=== PATIENT | male | born 1950 | race Caucasian/White ===

== ENCOUNTER 2024-11-03 10:07 | Outpatient (AMB) | payer OTHER, SELFPAY ==
--- NOTE | 2024-11-03 10:12 | A.OFFPC_ITS ---
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 Cirrhosis. Gastroenterology Dr Keys. in [place]. Also Followed at [facility] about q6 mos. Prostate CA and s/p Chemotherapy. Migraines 2ndry to Vision problems. SurgHx: Prostate Seed procedure. Liver tumor resection. PFO repaired SocHx: Quit Cigs > 25 yrs ago. EtOH Quit 20 yrs ago. Daily MJ No other drugs HPI Comments History of Present Illness Details Documentation assistance for Sukhwinder Hester MD, was provided by Robert Savage,? Sewing Techniques Demonstrator on 11/03/2024 at 11:14 AM EST. I, Dr. Hester, have read, observed, and verified documentation. ?? PFSH Medical History (Updated 11/03/24 @ 11:06 by Robert Savage) Gallbladder calculus Liver disease Family History (Updated 11/03/24 @ 10:48 by Christopher Zamora [facility]) Father Alcoholism Social History Housing: House Patient Tobacco Use Status: Never used Tobacco Current occupational status: retired Cognitive needs: No Hearing needs: No Vision needs: Yes Questionnaire PHQ-9 Over the last 2 weeks, how often have you been bothered by any of the following problems? 1. Little interest or pleasure in doing things: not at all 2. Feeling down, depressed, or hopeless: not at all 3. Trouble falling or staying asleep, or sleeping too much: not at all 4. Feeling tired or having little energy: not at all 5. Poor appetite or overeating: not at all 6. Feeling bad about yourself - or that you are a failure or have let yourself or your family down: not at all 7. Trouble concentrating on things, such as reading the newspaper or watching television: not at all 8. Moving or speaking so slowly that other people could have noticed. Or the opposite - being so fidgety or restless that you have been moving around a lot more than usual: not at all 9. Thoughts that you would be better off or of hurting yourself in some way: not at all Total score: 0 Depression Screening Interpretation: Negative Depression Screening Done: Yes 22624 - PHQ-9 Billing: Yes Source: Developed by Drs. Yoni Geronimo, Bronwyn Flor, Anatoly Haas and colleagues, with an educational blanka from [employer]. Thrive Questionnaire I am a: Patient What is your living situation today?: I have a steady place to live Within the past 12 months, did the food you bought not last and you didn't have the money to get more?: Never true Within the past 12 months, did you worry whether your food would run out before you got money to buy more?: Never true Do you have trouble paying for medicines?: No Do you have trouble getting transportation to medical appointments?: No Do you have trouble paying your heating and electricity bill?: No Do you have trouble taking care of your child, family member or friend?: No Do you have trouble with day-to-day activities such as bathing, preparing meals, shopping, managing finances, etc.?: No Are you currently unemployed and looking for a job?: No Are you interested in more education?: No THRIVE Score: 0 YVES-7 AMB Questionnaire YVES-7 Date YVES - 7 assessed: 11/03/24 Feeling nervous, anxious, or on edge: 0 = Not at all Not being able to stop or control worryin = Not at all Worrying too much about different things: 0 = Not at all Trouble relaxin = Not at all Being so restless that it is hard to sit still: 0 = Not at all Becoming easily annoyed or irritable: 0 = Not at all Feeling afraid as if something awful might happen: 0 = Not at all Total YVES-7 score (0-4 normal; 5-9 mild; 10-14 moderate; 15-21 severe): 0 Source: Developed by Drs. Yoni Geronimo, Bronwyn Flor, Anatoly Haas and colleagues, with an educational blanka from [employer]. YVES-7 Assessment Billing YVES-7 Assessment Tool: YVES-7 Assessment 56656 Review of Systems Const Denies chills, Denies fatigue, Denies fever(s), Denies headache(s) and Denies weakness ENT Denies dizziness and Denies headache(s) Card Denies chest pain, Denies lightheadedness, Denies dyspnea and Denies other (Palpitations) Resp Denies cough, Denies dyspnea, Denies wheezing and Denies other ( shortness of breath) Musc Denies numbness and Denies tingling Neuro Denies dizziness, Denies headache(s), Denies numbness, Denies tingling, Denies paresthesias and Denies weakness Psych Denies anxiety and Denies depression Endo Denies fatigue Aller/Immun Denies wheezing Physical exam (Primary Care) Vital Signs: Last Vital Signs Temp 97.5 F 11/03/24 10:17 Pulse 65 11/03/24 10:17 Resp 14 11/03/24 10:17 BP 130/74 11/03/24 10:17 Pulse Ox 99 11/03/24 10:17 Oxygen Delivery Method Room Air 11/03/24 10:17 BMI result Body Mass Index 23.0 Tobacco/Smoking Status: Tobacco use Status Patient Tobacco Use Status Never used Tobacco 11/03/24 10:21 PHQ-9: PHQ-9 Score PHQ-9: Total score 0 11/03/24 11:14 Depression Screening Interpretation: Negative Const General: no acute distress and well developed Nutritional Appearance: well nourished Orientation/consciousness: patient oriented x3 HENMT Head: Yes normocephalic and Yes atraumatic Eyes General: appearance normal, both eyes and all related structures Pupils: Equal, round and reactive pupils present EOM: EOMs intact bilaterally Resp Effort & Inspection: normal respiratory effort Auscultation: clear to auscultation bilaterally Cardio Rate: regular rate Rhythm: regular rhythm Heart sounds: S1 normal heart sound present, S2 normal heart sound present, no gallops, Murmur heart sound present and no rubs Neuro General: patient oriented x3 and gait normal Cranial nerves: Yes Equal, round and reactive pupils present Psych Affect: normal affect Coding Level of Care Code New Pt Level 4 (24305) Diagnoses Cirrhosis K74.60 History of liver cancer Z85.05 History of prostate cancer Z85.46 Heart murmur R01.1 History of stroke Z86.73 Vision changes H53.9 Migraines G43.909 History of alcohol use Z87.898 First degree AV block I44.0 Laboratory exam ordered as part of routine general medical examination Z00.00 Additional Codes YVES-7 Assessment Billing - YVES-7 Assessment Tool: YVES-7 Assessment 52331 ([id number]) PHQ-9 - 09596 - PHQ-9 Billing: Yes ([id number]) Assessment & Plan Assessment & Plan (1) Cirrhosis: Code(s): K74.60 - Unspecified cirrhosis of liver Category: Medical Plan: History?of?alcohol?abuse?but?patient?says?he?quit?many?years?ago. Remain?abstinent Follow- up?with?Gastroenterology.??Patient?says?was?seen?by??[facility]?and?is?also?followe d?at[facility] (2) History of liver cancer: Code(s): Z85.05 - Personal history of malignant neoplasm of liver Category: Medical Plan: Followed?at[facility] Requesting?notes (3) History of prostate cancer: Code(s): Z85.46 - Personal history of malignant neoplasm of prostate Category: Medical Plan: S/p?brachytherapy Check?PSA Patient?has?mild?dribbling?at?times. Will?refer?to?Urology?if?PSA?is?elevated?or?symptoms?worsened (4) Heart murmur: Code(s): R01.1 - Cardiac murmur, unspecified Category: Medical Plan: Patient?notes?a?murmur He?says?he?has?a?history?of a?cardiac?shunt?and?likely?PFO?which?was?repaired. 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 Check Echo (5) History of stroke: Code(s): Z86.73 - Personal history of transient ischemic attack (TIA), and cerebral infarction without residual deficits Category: Medical Plan: History?of?stroke?secondary?to PFO,?repaired (6) Vision changes: Code(s): H53.9 - Unspecified visual disturbance Category: Medical Plan: Vision Changes?secondary?to?stroke Follow-up?with?blue leather sorter?as?recommended (7) Migraines: Code(s): G43.909 - Migraine, unspecified, not intractable, without status migrainosus Category: Medical Plan: Patient?notes?migraines He?will?follow-up?with?blue leather sorter If?unresolved,?will?refer?to?Neurology?as?he?has?a?history?of?stroke?as?well (8) History of alcohol use: Code(s): Z87.898 - Personal history of other specified conditions Category: Medical Plan: No?recent?alcohol?use?in?many?years Maintain?abstinence (9) First degree AV block: Code(s): I44.0 - Atrioventricular block, first degree Category: Medical Plan: Stable (10) Laboratory exam ordered as part of routine general medical examination: Code(s): Z00.00 - Encounter for general adult medical examination without abnormal findings Category: Medical Plan: Check?labs Orders: Orders Comprehensive [place]. Panel Fast 11/03/24 Z00.00 - Encounter for general adult medical examination without abnormal findings Prostate Specific Antigen Scr 11/03/24 Z12.5 - Encounter for screening for malignant neoplasm of prostate Lipid Panel 11/03/24 Z00.00 - Encounter for general adult medical examination without abnormal findings Vitamin D 25-OH Total 11/03/24 E55.9 - Vitamin D deficiency, unspecified Vitamin B12 and Folate 11/03/24 E53.8 - Deficiency of other specified B group vitamins AMB EKG-In Office 11/03/24 I49.9 - Cardiac arrhythmia, unspecified, R01.1 - Cardiac murmur, unspecified CA echo transthoracic complete 11/03/24 R01.1 - Cardiac murmur, unspecified Complete Blood Count Auto Diff 11/03/24 Z00.00 - Encounter for general adult medical examination without abnormal findings Microalbumin, Random (w Creat) 11/03/24 I10 - Essential (primary) hypertension UA CC w/rflx Micro + Cult 11/03/24 Z00.00 - Encounter for general adult medical examination without abnormal findings TSH reflex Free T4 11/03/24 Z00.00 - Encounter for general adult medical examination without abnormal findings
[2024-11-03 10:17] VITALS: BP 130/74; PULSE 65; RESP 14; TEMP 36.4; O2SAT 99; BMI 23.0
--- OUTSIDE RECORDS SUMMARY | 2024-11-03 10:27 | XMS_ITS | Clinical Summary ---
Author Organization [facility] Address [address] [place] [address] Care Team Providers Care Advertising Production Manager Name Role Phone Dustin Tolentino Primary Care Provide r Allergies No known active allergies Medications Medication Sig Dispensed Refills Start Date End Date Status COMBIGAN 0.2-0.5 % ophthalmic solution Place 1 drop into both eyes 2 (two) times a day. 2 12/25/2016 Active colchicine 0.6 MG tablet TAKE 2 tablets by MOUTH FOR 1 DOSE THEN 1 tablet 1 hour LATER needed FOR flare 5 01/02/2017 Active fluticasone (FLONASE) 50 MCG/ACT nasal spray USE 2 SPRAYS IN EACH NOSTRIL EVERYDAY 5 01/02/2017 Active latanoprost (XALATAN) 0.005 % ophthalmic solution Place 1 drop into both eyes every night at bedtime. 6 12/25/2016 Active naproxen (NAPROSYN) 500 MG tablet TAKE 1 TABLET BY MOUTH TWICE DAILY FOR 3 DAYS THEN TWICE DAILY NEEDED. TAKE WITH food 0 01/06/2017 Active omeprazole (PRILOSEC) 20 MG capsule TAKE 1 CAPSULE BY MOUTH DAILY 5 01/02/2017 Active oxyCODONE-acetaminoph en (PERCOCET) 5-325 MG per tablet TAKE 1 TO 2 tablets BY MOUTH every 4 TO 6 hours NEEDED 0 01/06/2017 Active amoxicillin-clavulana te (AUGMENTIN) 875-125 MG per tablet Take 1 tablet by mouth 2 (two) times a day. 0 Active Lactobacillus (BRIANA ASSIST PO) Take by mouth. 0 Active Ophthalmic Irrigation Solution (AKORN BALANCED SALT OP) Apply to eye. 0 Acti ve nadolol (CORGARD) 40 MG tablet Take 40 mg by mouth daily. 0 Active Active Problems Problem Noted Date Diagnosed Date Liver cell carcinoma 01/08/2017 Alcoholic cirrhosis of liver without ascites 08/2016 Family History Medical History Relation Name Comments No Sig Med Hx Brother 1 No Sig Med Hx Daughter 1 No Sig Med Hx Daughter 2 Lung cancer Mother Lung cancer Other Nephew No Sig Med Hx Sister No Sig Med Hx Son Relation Name Status Comments Brother 1 Brother 2 aortic aneurism Daughter 1 Daughter 2 Mother (Age 68) Other Nephew (Age 47) Sister Son Social History Tobacco Use Types Packs/Day Years Used Date Smoking Tobacco: Former Cigarettes 2 30 Q uit: 01/08/2007 Smokeless Tobacco: Never Alcohol Use Standard Drinks/Week Comments Yes 140 (1 standard drink = 0.6 oz p ure alcohol) QUIT 7 years ago Sex and Gender Information Value Date Recorded Sex Assigned at Not on file Gender Identity Not on file Sexual Orientation Not on file Job Start Date Occupation Industry Not on file Not on file Not on file Last Filed Vital Signs Vital Sign Reading Time Taken Comments Blood Pressure 143/80 02/23/2017 10:28 AM EDT Pulse 54 02/23/2017 10:28 AM EDT Temperature - - Respiratory Rate - - Oxygen Saturation - - Inhaled Oxygen Concentration - - Weight 79.8 kg (176 lb) 02/23/2017 10:28 AM EDT Height 180.3 cm (5' 11 ) 02/23/2017 10:28 AM EDT Body Mass Index 24.55 02/23/2017 10:28 AM EDT Plan of Treatment Health Maintenance Due Date Last Done Comments Hepatitis C Screening 1950 COVID-19 Vaccine (#1) 1954 Pneumococcal Vaccine (1 of 2 - PCV) 1955 Depression Screening 1961 Preventative Health Evaluation 1967 DTap / Tdap / Td (1 - Tdap) 1968 Shingrix-Zoster Vaccine (1 of 2) 1968 Colon Cancer Screening (Colonoscopy) 1994 Fall Risk Assessment 2014 Influenza Vaccine (#1) 2024 RSV Adult > 60+ Yrs or Pregn ant (1 - 1-dose 75+ series) 2024 Hepatitis B Vaccines Aged Out No long er eligible based on patient's age to complete this topic RSV Ped < 20 months Aged Out No longe r eligible based on patient's age to complete this topic Care Teams Advertising Production Manager Relationship Specialty Start Date End Date Dustin Tolentino DO [address] [facility] [address] [place] [address] PCP - General Internal Medicine 01/08/17
== END 2024-11-03 11:17 | disposition home or self-care (01) ==
LOC: HO.HMCFM 10:08
PROVIDERS: PCP Family Medicine; Visit Provider Family Medicine
DX: K74.60 Unspecified cirrhosis of liver (principal); Z85.05 Personal history of malignant neoplasm of liver; Z85.46 Personal history of malignant neoplasm of prostate; R01.1 Cardiac murmur, unspecified; Z86.73 Personal history of transient ischemic attack (TIA), and cerebral infarction without residual deficits; H53.9 Unspecified visual disturbance; G43.909 Migraine, unspecified, not intractable, without status migrainosus; Z87.898 Personal history of other specified conditions; I44.0 Atrioventricular block, first degree; Z00.00 Encounter for general adult medical examination without abnormal findings

== ENCOUNTER → 2024-11-03 10:07 | Outpatient (BNVA) | payer OTHER, SELFPAY | PROVIDERS: PCP Family Medicine; Visit Provider Family Medicine | DX: Z00.00 Encounter for general adult medical examination without abnormal findings (principal); K74.60 Unspecified cirrhosis of liver; R01.1 Cardiac murmur, unspecified; H53.9 Unspecified visual disturbance; G43.909 Migraine, unspecified, not intractable, without status migrainosus; I44.0 Atrioventricular block, first degree; Z85.05 Personal history of malignant neoplasm of liver; Z85.46 Personal history of malignant neoplasm of prostate; Z86.73 Personal history of transient ischemic attack (TIA), and cerebral infarction without residual deficits; Z87.898 Personal history of other specified conditions | CPT/HCPCS: 96127 ==

== ENCOUNTER → 2024-11-30 09:55 | Outpatient (REF) | payer MEDICARE, SELFPAY ==
--- NOTE | 2024-11-30 10:07 | CA_ITS ---
Transthoracic Echocardiogram Patient (Last, First, Middle): Lucio Sanchez H Gender: Male Date of : 1950 Age: 74 Procedure Date: 11/30/2024 Procedure Type: Transthoracic Echocardiogram Location: OP Height: 180.34 cm Weight: 74.84 kg BSA: 1.94 m2 Heart Rate: 50 bpm BP: 130 / 72 mmHg Grocery Store Associate: SB Referring MD: Sukhwinder Hester MD Symptoms: R01.1 - Cardiac murmur, unspecified Study Quality: Adequate ECG Rhythm: Sinus Conclusions: - The left ventricular systolic function is normal. The calculated ejection fraction is 65% by biplane method. - There is mild to moderate aortic valve stenosis. Findings Left Ventricle Normal left ventricular cavity size. The left ventricular systolic function is normal. The calculated ejection fraction is 65% by biplane method. There is no evidence of regional wall motion abnormalities. Diastolic function is normal for age. There is mild septal and mild basal asymmetric hypertrophy. Right Ventricle Mildly increased right ventricular cavity size. There is normal right ventricular systolic function. Atria Both atria are normal in size. History of septal closure device; no obvious residual leak. Aortic Valve There is moderate calcification of the aortic valve. There is mild to moderate aortic valve stenosis. There is no aortic valve regurgitation. Mitral Valve There is mild mitral annular calcification. There is no mitral valve regurgitation. There is no mitral valve stenosis. Pulmonic Valve The pulmonic valve is likely normal. Tricuspid Valve There is trace tricuspid valve regurgitation. There is no evidence of pulmonary hypertension. Great Vessels The asc aorta is normal in size. Small plaque is seen in the sino tubular ridge. Venous The inferior vena cava was not well visualized. Pericardium/Pleural There is no evidence of pericardial effusion. Prior Study Comparison No prior study available for comparison. Measurements 2D Linear Measurements IVSd: 1.38 0.6-0.9/0.6-1.0 cm LVIDd: 3.97 3.9-5.3/4.2-5.9 cm LVIDd Index: 2.05 2.4-3.2/2.2-3.1 cm/m2 LVIDs: 2.45 2.0-3.6 cm LVPWd: 0.80 0.7-1.1 cm LA Diam: 3.60 2.7-3.8/3.0-4.0 cm LAIDs Index: 1.86 1.5-2.3 cm/m2 LV Mass: 176.25 67-162/88-224 g LV Mass Index: 90.85 43-95/49-115 g/m2 LVOT Diam: 2.20 3.0+(-)1.3 cm 2D Systolic Function EF 4C: 53.70 >55% EF 2C: 70.20 >55% EF BiP: 64.50 >55% Mitral Valve MV Pk E: 0.80 MV PK A: 0.96 MV Decel Time: 315.00 E/A: 0.80 E'Lateral: 9.68 E'Medial: 6.09 E/E' Med: 13.20 E/E' Lat: 8.30 PHT: 92.00 MVA PHT: 2.39 Decel [place]: 2.54 Aortic Valve AoV Pk José: 2.55 AoV Mn José: 1.74 AoV VTI: 0.62 AoV Pk Grad: 26.00 Aov Mn Grad: 14.00 RIGOBERTO Cont.VTI: 1.31 LVOT LVOT Pk José: 0.94 LVOT Mn José: 0.64 LVOT VTI: 0.21 LVOT Pk Grad: 4.00 LVOT Mn Grad: 2.00 LVOT Diam: 2.20 LVOT Area: 3.80 Diastolic Function MV Pk E: 0.80 MV Pk A: 0.96 E/A: 0.80 E'Medial: 6.09 E/E' Med: 13.20 E' Laterial: 9.68 E/E' Lat: 8.30 Right Ventricle TAPSE (mm): 21.20 TVS' José: 10.80 Tricuspid Valve TR Pk José: 1.94 TR Pk Grad: 15.00 RA Press: 3.00 RVSP: 18.00 Great Vessels Aorta Sinus of Valsalva: 3.60 2.0-3.5 cm Ao Asc: 3.50 2.1-3.4 cm Pulmonary Veins Pulm Vein S/D 2.00 Pulmonary Valve PV Pk José: 1.12 Peak PV Grad: 5.00 Updated in Other Vendor System with Status of Final Jose Roberto Diaz MD electronically signed on 12/02/2024 1:06:35 PM with status of Final
--- OUTSIDE RECORDS SUMMARY | 2024-11-30 11:26 | XMS_ITS | Clinical Summary ---
Author Organization [facility] Address [address] [place] [address] Care Team Providers Care Trans Router Name Role Phone Dustin Tolentino Primary Care [...] Screening (Colonoscopy) 1994 Fall Risk Assessment 2014 RSV Adult > 60+ Yrs or Pregn ant (1 - 1-dose 75+ series) 2024 Influenza Vaccine (Season Ended) 2025 Hepatitis B Vaccines Aged Out No long er eligible based on patient's age to complete this topic RSV Ped < 20 months Aged Out No longe r eligible based on patient's age to complete this topic Care Teams Trans Router Relationship Specialty Start Date End Date Dustin Tolentino DO [address] [facility] [address] [place] [address] PCP - General Internal Medicine 01/08/17
== END ==
LOC: HO.CARD 09:55
PROVIDERS: PCP Family Medicine; Visit Provider Family Medicine
DX: R01.1 Cardiac murmur, unspecified (principal)
CPT/HCPCS: 93306

== ENCOUNTER → 2024-11-30 10:07 | Outpatient (BNV) | payer MEDICARE, SELFPAY | PROVIDERS: PCP Family Medicine; Visit Provider Internal Medicine | DX: I42.2 Other hypertrophic cardiomyopathy (principal); I35.0 Nonrheumatic aortic (valve) stenosis; I34.81 Nonrheumatic mitral (valve) annulus calcification | CPT/HCPCS: 93306 ==

== ENCOUNTER 2025-01-02 08:18 | Outpatient (REF) | payer MEDICARE, SELFPAY ==
--- OUTSIDE RECORDS SUMMARY | 2025-01-02 08:27 | XMS_ITS | Clinical Summary ---
Author Organization [facility] Address [address] [place] [address] Care Team Providers Care Audio Visual Collections Coordinator Name Role Phone Dustin Tolentino Primary Care [...] - 1-dose 75+ series) 2024 Influenza Vaccine (#1) 2025 Hepatitis B Vaccines Aged Out No long er eligible based on patient's age to complete this topic RSV Ped < 20 months Aged Out No longe r eligible based on patient's age to complete this topic Care Teams Audio Visual Collections Coordinator Relationship Specialty Start Date End Date Dustin Tolentino DO [address] [facility] [address] [place] [address] PCP - General Internal Medicine 01/08/17
--- OUTSIDE RECORDS SUMMARY | 2025-01-02 08:27 | XMS_ITS ---
Author Name [facility] Organization Unknown Care Team Organization Name Specialty Phone Email Start Date End Da partha [facility] Ana Lilia Murray Primary Care 04/15/2022 01/25/2024
--- OUTSIDE RECORDS SUMMARY | 2025-01-02 08:28 | XMS_ITS | Clinical Summary ---
Author Organization [address] [place] [address] Address [address] [place] [address] Phone Care Team Providers Care Icebox Man Name Role Phone Medel, Robert J Primary Care Provider + Allergies Active Allergy Reactions Criticality Noted Date Comments Codeine Headache 05/06/2018 Medications omeprazole (PriLOSEC) [address] capsule Take 1 capsule (20 mg total) by mouth 1 (one) time each day. 4 Active OMEGA-3 FATTY ACIDS ORAL Take by mouth. Acti ve TURMERIC ORAL Take by mouth. A ctive fluticasone propionate (FLONASE NASL) Administer into affected nostril(s). Active multivit-min/foli c/vit K/lycop (MEN'S MULTIVITAMIN ORAL) Take 1 tablet by mouth 1 (one) time each day. 7 Active ferrous sulfate 325 mg (65 mg iron) EC tablet Take 1 tablet (325 mg total) by mouth 1 (one) time each day with breakfast. Do not crush, chew, or split. 30 each 11 5 07/21/19 26 Active Active Problems Problem Noted Date Diagnosed Date Gout 05/19/2017 Prediabetes 05/11/2017 Hepatocellular carcinoma (CMS/HCC V24, CMS/HCC V 28) 03/05/2017 Overview (05/20/2024): bx 01/22/17 [place]. Follow up at [facility] for liver transplant consideration. Chemoembolization February 2017, May/2017, October 2017 and March 2018. 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 + murmur 04/17/16 Radiation proctitis 11/04/2016 Renal cyst, right 11/04/2016 Overview (05/20/2024): US 10/18/15 Thrombocytopenia ([facility] V24) 11/04/2016 Tubular adenoma of colon 11/04/2016 Overview (05/20/2024): Colonoscopy 10/31/11. 5 year repeat Diverticulosis 11/04/2016 Overview (05/20/2024): Diverticulitis of lg intestine, 01/2017 Immunizations Name Administration Dates Next Due Influenza trivalent, 0.5mL (Fluad) 65yo and olde r 01/30/2020 Influenza, Unspecified 04/26/2019 [employer] SARS-CoV-2 COVID -19, vector-nr, rS-Ad26, preservative free 10/04/2020 Surgical History Surgery Date Site/Laterality Comments OTHER SURGICAL HISTORY PROCEDURE: HISTORY OTHER; COMMENT: PFO repair BACK SURGERY PROCEDURE: HISTORICAL BACK SURGERY; COMMENT: Lumbar vertebroplasty UPPER GASTROINTESTINAL ENDOSCOPY 04/2015 PROCEDURE: UPPER GI ENDOSCOPY/EXAM COLONOSCOPY 10/31/19 12 PROCEDURE: HISTORICAL COLONOSCOPY; COMMENT: 5 year repeat COLONOSCOPY 12/31/19 17 PROCEDURE: HISTORICAL COLONOSCOPY; COMMENT: polyp UPPER GASTROINTESTINAL ENDOSCOPY 12/31/19 17 PROCEDURE: NE UPPER GI ENDOSCOPY PERFORMED; COMMENT: small varices, mild portal gastropathy BACK SURGERY 06/12/19 17 Left PROCEDURE: HISTORICAL BACK SURGERY; COMMENT: L4-L5 microdiscectomy FLEXIBLE SIGMOIDOSCOPY 05/06/20 18 PROCEDURE: HISTORICAL FLEXIBLE SIGMOIDOSCOPY; COMMENT: radiation proctitis with bleeding UPPER GASTROINTESTINAL ENDOSCOPY 05/06/20 18 PROCEDURE: NE UPPER GI ENDOSCOPY PERFORMED; COMMENT: grade 2 esophageal varices OTHER SURGICAL HISTORY 2019 Right PROCEDURE: INCISION OF EYE FOR GLAUCOMA CATARACT EXTRACTION 2020 Right PROCEDURE: HISTORICAL CATARACT REMOVAL COLONOSCOPY 11/20/19 PROCEDURE: HISTORICAL COLONOSCOPY; COMMENT: tubular adenomas, diverticulosis, radiation proctitis ESOPHAGOGASTRODUODENOSCOPY 11/20/19 PROCEDURE: NE ESOPHAGOGASTRODUODENOSCOPY TRANSORAL DIAGNOSTIC; COMMENT: hiatal hernia, truncated varices. 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 + murmur 04/17/16 Radiation proctitis 11/04/2016 DX:Radiation proctitis Angiodysplasia 11/04/2016 DX:Angiodysplasi a; COMMENT: Rectal bleeding Thrombocytopenia (CMS/HCC V24) 11/04/2016 D X:Thrombocytopenia (HCC) Renal cyst, right 11/04/2016 DX:Renal cyst, right; COMMENT: US 10/18/15 Tubular adenoma of colon 11/04/2016 DX:Tubu lar adenoma of colon; COMMENT: Colonoscopy 10/31/11. 5 year repeat Hepatocellular carcinoma (CM S/HCC V24, CMS/HCC V28) 03/05/2017 DX:Hepatocellular carcinoma (HCC) Prediabetes 05/11/2017 DX:Prediabetes Gout 05/19/2017 DX:Gout Radiation proctitis DX:Radiation proctitis Tubular adenoma of colon DX:Tubu lar adenoma of colon Esophageal reflux DX:Esophageal reflux Family History Medical History Relation Name Comments Other cancer Father Other: Other Mother Relation Name Status Comments Father Mother Social History Tobacco Use Types Packs/Day Years Used Date Smoking Tobacco: Former Cigarettes Q uit: 11/28/2005 Smokeless Tobacco: Never Tobacco Cessation:Counseling Given: Not Answered Alcohol Use Standard Drinks/Week Comments No 0 (1 standard drink = 0.6 oz pur e alcohol) Sex and Gender Information Value Date Recorded Sex Assigned at Male 07/26/2024 9:07 AM EST Legal Sex Male 5:25 PM EST Gender Identity Male 07/26/2024 9:07 AM EST Sexual Orientation Choose not to disclose 2024 9:07 AM EST Obstetrics History Last Filed Vital Signs Vital Sign Reading Time Taken Comments Blood Pressure 126/76 07/21/2024 2:42 PM EST Pulse 61 07/21/2024 2:42 PM EST Temperature - - Respiratory Rate 16 07/21/2024 2:42 PM EST Oxygen Saturation 99% 07/21/2024 2:42 PM EST Inhaled Oxygen Concentration - - Weight 77 kg (169 lb 12.8 oz) 07/21/2024 2:42 PM EST Height 180.3 cm (5' 11 ) 07/21/2024 2:42 PM EST Body Mass Index 23.68 07/21/2024 2:42 PM EST Plan of Treatment Health Maintenance Due Date Last Done Comments Pneumococcal Vaccine: 50+ Years (3 of 3 - PPSV23, PCV20 or PCV21) 05/26/2017 02/13/2017, 05/26/2012 Hepatitis A Vaccines (3 of 3 - Hep A Twinrix risk 3-dose series) 08/17/2017 03/19/2017, 02/13/2017 Hepatitis B Vaccines (3 of 3 - Hep B Twinrix risk 3-dose series) 08/17/2017 03/19/2017, 02/13/2017 COVID-19 Vaccine (2 - Urszula risk series) 11/01/2020 10/04/2020 Abdominal Aortic Aneurysm (AAA) Screen 05/10/2022 Cholesterol Screening (Lipid Panel) 05/10/2022 Falls Risk Assessment 05/10/2022 Medicare Annual Wellness Visit 05/10/2022 Social Influencers of Health Screening 05/10/2022 Depression Screening 06/08/2024 RSV Immunization Adult Patients (1 - 1-dose 75+ series) 2024 Influenza Vaccine (#1) 2025 3, 04/05/2022, 01/30/2020, Additional history exists Colorectal Cancer Screening: Colonoscopy 11/19/2026 11/19/2021 DTaP,Tdap,and Td Vaccines (2 - Td or Tdap) 02/13/2027 02/13/2017 Hepatitis C Screening Completed 11/16/2014 Zoster Vaccines Completed 04/19/2021, 06/2020, 02/19/2017 HIB Vaccines Aged Out No longer eligi ble based on patient's age to complete this topic HPV Vaccines Aged Out No longer eligi ble based on patient's age to complete this topic IPV Vaccines Aged Out No longer eligi ble based on patient's age to complete this topic MMR Vaccines Aged Out No longer eligi ble based on patient's age to complete this topic Meningococcal ACWY Vaccine Aged Out N o longer eligible based on patient's age to complete this topic Meningococcal B Vaccine Aged Out No l onger eligible based on patient's age to complete this topic RSV Immunization Patients Under 20 months Aged Out No longer eligible based on patient's age to complete this topic Varicella Vaccines Aged Out No longer eligible based on patient's age to complete this topic Procedures Procedure Name Priority Date/Time Associated Diagnosis Comments COLONOSCOPY Routine 11/19/2021 HEPATITIS C SCREENING Routine 11/16/2014 from Last 3 Months or Most Recently Relevant to Health Maintenance Results * Colonoscopy (11/19/2021) Colonoscopy abstracted, no interpretation Anatomical Region Laterality Modality Other Historical Provider HEALTH MAINTENANCE Final Result * Hepatitis C Screening (11/16/2014) Hepatitis C Screening abstracted Historical Provider HEALTH MAINTENANCE Final Result from Last 3 Months or Most Recently Relevant to Health Maintenance Insurance [employer]ARE [employer]AGE Care Teams Icebox Man Relationship Specialty Start Date End Date Yoni Medel DO [facility] [address] [place] [address] [phone] PCP - General Internal Medicine 11/12/20
[2025-01-02 11:39] LABS: MANUAL DIFF FLAG NO
[2025-01-02 11:46] LABS: Hematocrit 40.3 % (42.0-52.0); Hemoglobin 13.8 g/dl (14.0-18.0); Imm Gran Abs Auto 0.02 X10*3/uL (0.00-0.03); Imm Gran Pct Auto 0.3 % (0.0-0.4); Lymphocytes Absolute Auto 1.6 X10*3/uL (1.2-4.9); Mean Corpuscular HGB Conc 34.2 g/dl (31.0-36.0); Mean Corpuscular Hemoglobin 34.7 pg (27.0-33.0); Mean Corpuscular Volume 101.3 fL (80.0-98.0); NRBC Abs Auto 0.000 X10*3/uL (0.0-0.012); NRBC Pct Auto 0.0 /100WBC (0.0-0.2); Platelet Count 120 X10*3/uL (160-400); Red Blood Count 3.98 X10*6/uL (4.60-5.80); White Blood Count 7.6 X10*3/uL (4.8-10.8)
[2025-01-02 12:13] LABS: Alanine Aminotransferase 22 U/L (0-40); Albumin Level 4.3 g/dL (3.5-5.0); Alkaline Phosphatase 96 U/L (39-117); Anion Gap 15 (12-20); Aspartate Amino Transferase 44 U/L (5-37); Blood Urea Nitrogen 18 mg/dL (9-16); Calcium 9.7 mg/dL (8.4-10.2); Carbon Dioxide 25 mmol/L (22-29); Chloride 106 mmol/L (96-108); Cholesterol 214 mg/dL (<200); Estimated Glomerular Filt Rate > 60; HDL Cholesterol 52 mg/dL (>40); Potassium 4.6 mmol/L (3.3-5.1); Sodium 141 mmol/L (135-145); Total Protein 7.8 g/dL (6.5-8.0); Triglycerides 103 mg/dL (<150)
[2025-01-02 12:38] LABS: Folate 13.4 ng/mL (> or = 4.0); Vitamin B12 728 pg/mL (200-900)
[2025-01-02 15:12] LABS: Appearance Urine Clear; Glucose Urine UA Negative (Negative); PH 5.5 (5.0-9.0); Specific Gravity - Urine 1.025 (1.005-1.025); UMIC TRIGGER UACC YES
[2025-01-02 15:45] LABS: Microalbum/Creatinine Ratio Ur 80.1 ug/mg cr (<30)
== END 2025-01-02 08:19 | disposition home or self-care (01) ==
LOC: HO.WFDLDS 08:18
PROVIDERS: Visit Provider Family Medicine
DX: Z00.00 Encounter for general adult medical examination without abnormal findings (principal); Z12.5 Encounter for screening for malignant neoplasm of prostate; I10 Essential (primary) hypertension; E55.9 Vitamin D deficiency, unspecified; E53.8 Deficiency of other specified B group vitamins
CPT/HCPCS: 36415; 80053; 80061; 81001; 81003; 82043; 82306; 82570; 82607; 82746; 84153; 84443; 85025

== ENCOUNTER 2025-01-04 11:02 | Outpatient (AMB) | payer OTHER, SELFPAY ==
--- NOTE | 2025-01-04 11:08 | MHC.PC.OV ---
Vital Signs 01/04/25 11:13 Height 5 ft 11 in Weight 156 lb 8 oz BMI 21.8 BP 120/70 Blood Pressure Location Rt brachial Position Sitting Respiration 14 Pulse 68 Pulse Source Pulse Oximeter Temp 97.8 F Temp Source Oral Pulse Oximetry (%) 96 Oxygen Delivery Method Room Air Intake Visit Reasons: CPE with f/u labs and health maint. 30 mins Intake Note: patient is scheduled for cpe Outreach Assistant Required: No Allergies codeine Adverse Reaction (Mild, Verified 01/04/25 11:08) Headache Medication List - Last Reconciled 01/04/25 by Sukhwinder Hester MD ferrous sulfate (FeroSul) 325 mg PO QAM latanoprost 0.005% 1 drp ophthalmic (eye) BEDTIME omeprazole 20 mg PO DAILY 90 days Tobacco use date assessed: 01/04/25 Fall risk assessment: No Falls in past year Last assessed Fall Risk: 01/04/25 Dental Screening Dental Screen Date: 01/04/25 Did you have a dental visit in the last 12 months?: No Did you have a dental problem in the last 6 months where you did not have access to dental care?: Yes Was dental information given to patient?: Patient has dentist HPI CPE with f/u labs and health maint. 30 mins HPI Details 74 y/o male presents for a CPE with f/u labs and health maintenance. Labs drawn 01/02/25. Reviewed labs with pt. Mild anemia. Fasting glucose 135. AST 44. Triglycerides 103. TC 214. LDL 142. HDL 52. Echocardiogram 11/30/24. Conclusions show: Conclusions: - The left ventricular systolic function is normal. The calculated ejection fraction is 65% by biplane method. - There is mild to moderate aortic valve stenosis. [facility] Medical History Gallbladder calculus Liver disease Family History Father Alcoholism Social History Housing: House Patient Tobacco Use Status: Never used Tobacco e-Cigarette/Vaping Use: Never Used service: No Current occupational status: retired Current occupational exposures/hazards: No Cognitive needs: No Hearing needs: No Vision needs: Yes Questionnaire PHQ-9 Over the last 2 weeks, how often have you been bothered by any of the following problems? 1. Little interest or pleasure in doing things: not at all 2. Feeling down, depressed, or hopeless: not at all 3. Trouble falling or staying asleep, or sleeping too much: nearly every day 4. Feeling tired or having little energy: not at all 5. Poor appetite or overeating: not at all 6. Feeling bad about yourself - or that you are a failure or have let yourself or your family down: not at all 7. Trouble concentrating on things, such as reading the newspaper or watching television: not at all 8. Moving or speaking so slowly that other people could have noticed. Or the opposite - being so fidgety or restless that you have been moving around a lot more than usual: not at all 9. Thoughts that you would be better off or of hurting yourself in some way: not at all Total score: 3 Depression Screening Interpretation: Negative Depression Screening Done: Yes 59948 - PHQ-9 Billing: Yes Source: Developed by Drs. Yoni Geronimo, Bronwyn Flor, Anatoly Haas and colleagues, with an educational blanka from [employer]. Thrive Questionnaire Date Thrive assessed: 01/04/25 I am a: Patient What is your living situation today?: I have a steady place to live Within the past 12 months, did the food you bought not last and you didn't have the money to get more?: Never true Within the past 12 months, did you worry whether your food would run out before you got money to buy more?: Never true Do you have trouble paying for medicines?: No Do you have trouble getting transportation to medical appointments?: No Do you have trouble paying your heating and electricity bill?: No Do you have trouble taking care of your child, family member or friend?: No Do you have trouble with day-to-day activities such as bathing, preparing meals, shopping, managing finances, etc.?: No Are you currently unemployed and looking for a job?: No Are you interested in more education?: Yes Please select the resources that you would like help with: None Currently or been in a relationship where the following occur: No concerns reported THRIVE Score: 0 AUDIT C Alcohol Use Questionnaire (AUDIT-C) 1. How often do you have a drink containing alcohol?: Never 3. How often do you have six or more drinks on one occasion?: Never Total Score: 0 YVES-7 AMB Questionnaire YVES-7 Date YVES - 7 assessed: 01/04/25 Feeling nervous, anxious, or on edge: 0 = Not at all Not being able to stop or control worryin = Not at all Worrying too much about different things: 0 = Not at all Trouble relaxin = More than half the days Being so restless that it is hard to sit still: 0 = Not at all Becoming easily annoyed or irritable: 1 = Several days Feeling afraid as if something awful might happen: 0 = Not at all Total YVES-7 score (0-4 normal; 5-9 mild; 10-14 moderate; 15-21 severe): 3 Source: Developed by Drs. Yoni Geronimo, Bronwyn Flor, Anatoly Haas and colleagues, with an educational blanka from [employer]. YVES-7 Assessment Billing YVES-7 Assessment Tool: YVES-7 Assessment 93929 Review of Systems Const Denies chills, Denies fatigue, Denies fever(s), Denies headache(s) and Denies weakness Eyes Denies change in vision ENT Denies dizziness, Denies headache(s), Denies hearing loss, Denies nasal congestion, Denies sinus pain, Denies sinus pressure and Denies sore throat Card Denies chest pain, Denies lightheadedness, Denies dyspnea and Denies other (palpitations) Resp Denies cough, Denies dyspnea and Denies wheezing GI Denies abdominal pain, Denies melena, Denies hematochezia, Denies change in bowel habits, Denies dyspepsia and Denies nausea Denies hematuria and Denies dysuria Musc Denies abnormal gait, Denies myalgias, Denies arthralgias, Denies numbness and Denies tingling Skin/Breast Denies rash, Denies unusual bruising and Denies wounds Neuro Denies abnormal gait, Denies dizziness, Denies headache(s), Denies memory loss, Denies numbness, Denies Sensory deficit (Neuro), Denies tingling and Denies weakness Psych Denies anxiety, Denies depression and Denies memory loss Endo Denies cold intolerance, Denies fatigue, Denies heat intolerance, Denies polydipsia and Denies polyuria Rick/Lymph Denies easy bleeding and Denies easy bruising Aller/Immun Denies wheezing Physical exam (Primary Care) Vital Signs: Last Vital Signs Temp 97.8 F 01/04/25 11:13 Pulse 68 01/04/25 11:13 Resp 14 01/04/25 11:13 BP 120/70 01/04/25 11:13 Pulse Ox 96 01/04/25 11:13 Oxygen Delivery Method Room Air 01/04/25 11:13 BMI result Body Mass Index 21.8 Tobacco/Smoking Status: Tobacco use Status Tobacco use date assessed 01/04/25 01/04/25 11:16 Patient Tobacco Use Status Never used Tobacco 01/04/25 11:16 e-Cigarette/Vaping Use Never Used 01/04/25 11:16 PHQ-9: PHQ-9 Score PHQ-9: Total score 3 01/04/25 12:17 Depression Screening Interpretation: Negative Thrive Assessment: Date of Thrive Assessment Date Thrive assessed 01/04/25 01/04/25 11:16 Currently or been in a relationship where the following occur: No concerns reported Const General: no acute distress, well developed, alert and awake Nutritional Appearance: well nourished Orientation/consciousness: patient oriented x3 HENMT Head: Yes normocephalic and Yes atraumatic Ears: hearing grossly normal bilaterally and TM's normal bilaterally General nose exam: Normal external nose present and Normal nares present Mouth: Normal oral and palatal mucosa present and moist mucous membranes Teeth and gingiva: dentition normal Throat: Yes posterior oropharynx normal Eyes General: appearance normal, both eyes and all related structures Pupils: Equal, round and reactive pupils present and Pupil accommodation reflex normal EOM: EOMs intact bilaterally Neck Neck: Yes normal visual inspection, Yes no lymphadenopathy and Yes trachea midline Thyroid: Thyroid normal Carotids: no bruits Lymphatic: no lymphadenopathy noted Chest Chest palpation & inspection: normal inspection of the chest Resp Effort & Inspection: normal respiratory effort Auscultation: clear to auscultation bilaterally Cardio Rate: regular rate Rhythm: regular rhythm Heart sounds: S1 normal heart sound present, S2 normal heart sound present, no gallops, no murmurs and no rubs Bruits: no abdominal aortic bruits and no carotid bruits GI Palpation (GI): No Abdominal aortic bruit present, Soft to palpation, nontender, No hepatosplenomegaly present and No Rebound tenderness present Auscultation: normal bowel sounds General: Yes no CVA tenderness Back/Spine/Pelvis Back: no CVA tenderness Cervical Spine: cervical ROM normal and No Cervical spine tenderness Thoracic/Lumbar Spine: thoraco-lumbar ROM normal, No pain with thoraco-lumbar ROM, No thoracic spinal tenderness and No lumbar spinal tenderness Skin Lesions: no lesions Rashes: no rashes Trauma: no lacerations or abrasions Wounds: no wounds Nails: normal Neuro General: patient oriented x3 Cranial nerves: Yes Equal, round and reactive pupils present Cognition (Neuro): normal cognition Gait exam (Neuro): Normal gait present Motor exam (neuro): 5/5 motor strength present throughout Sensory Exam: No Sensory deficit (Neuro) Deep tendon reflexes (DTR's): Right patellar reflex intensity grade: 2+ and Left patellar reflex intensity grade: 2+ Extrem General: Yes normal to inspection and No edema Psych Appearance: grossly normal Affect: normal affect Attitude: cooperative Thought process: Normal thought process present Coding Level of Care Code New Pt Prev Care >65yr (85212) Diagnoses Adult general medical exam Z00.00 Elevated fasting glucose R73.01 Hyperlipidemia E78.5 Aortic stenosis I35.0 Headache R51.9 History of prostate cancer Z85.46 Mild anemia D64.9 History of stroke Z86.73 Screening for colon cancer Z12.11 Left otitis externa H60.92 Additional Codes YVES-7 Assessment Billing - YVES-7 Assessment Tool: YVES-7 Assessment [id number] ([id number]) PHQ-9 - 91399 - PHQ-9 Billing: Yes ([id number]) Assessment & Plan Assessment & Plan (1) Adult general medical exam: Code(s): Z00.00 - Encounter for general adult medical examination without abnormal findings Category: Medical Plan: 74-year-old male presents for complete physical exam (2) Elevated fasting glucose: Code(s): R73.01 - Impaired fasting glucose Category: Medical Plan: Elevated fasting blood sugar but his A1c is 5.3%. Normal range. Will recheck fasting blood sugar with next lab draw (3) Hyperlipidemia: Code(s): E78.5 - Hyperlipidemia, unspecified Category: Medical Plan: LDL cholesterol is too high and patient does have history of TIA Start atorvastatin Will recheck lipids with next blood draw (4) Aortic stenosis: Code(s): I35.0 - Nonrheumatic aortic (valve) stenosis Category: Medical Plan: Echocardiogram shows moderate aortic stenosis Referred to cardiology (5) Headache: Code(s): R51.9 - Headache, unspecified Category: Medical Plan: Patient notices nasal congestion and sinus headache He has used Flonase past with good affect. Sent a script for Flonase. (6) History of prostate cancer: Code(s): Z85.46 - Personal history of malignant neoplasm of prostate Category: Medical Plan: PSA was within normal range. Will continue annual screening (7) Mild anemia: Code(s): D64.9 - Anemia, unspecified Category: Medical Plan: Mild anemia Will recheck H&H with next blood draw (8) History of stroke: Code(s): Z86.73 - Personal history of transient ischemic attack (TIA), and cerebral infarction without residual deficits Category: Medical Plan: Blood pressure appears controlled. 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 Panel Fast Today Z00.00 - Encounter for general adult medical examination without abnormal findings, Z86.73 - Personal history of transient ischemic attack (TIA), and cerebral infarction without residual deficits Lipid Panel Today Z00.00 - Encounter for general adult medical examination without abnormal findings, Z86.73 - Personal history of transient ischemic attack (TIA), and cerebral infarction without residual deficits Complete Blood Count Auto Diff Today D64.9 - Anemia, unspecified, Z00.00 - Encounter for general adult medical examination without abnormal findings Microalbumin, Random (w Creat) Today I10 - Essential (primary) hypertension, Z00.00 - Encounter for general adult medical examination without abnormal findings Referrals Cardiology Referral I35.0 - Nonrheumatic aortic (valve) stenosis Medications: New fluticasone propionate 50 mcg/actuation (Flonase Allergy Relief) administer into each nostril 1 spray intranasal Q12H 16 grams 2RF 30 days atorvastatin (Lipitor) 20 mg PO BEDTIME 90 tabs 2RF 90 days ciprofloxacin-dexamethasone 0.3-0.1 % 4 drps otic (ears) BID 7.5 mL 0RF 7 days
[2025-01-04 11:13] VITALS: BP 120/70; PULSE 68; RESP 14; TEMP 36.6; O2SAT 96; BMI 21.8
--- OUTSIDE RECORDS SUMMARY | 2025-01-04 12:08 | XMS_ITS | Encounter Summary ---
Author Organization [facility] Address [id number] [place] [phone] Care Team Providers Care Roofing Layer Name Role Phone Yoni Medel Primary Care Provider + Reason for Visit * Reason Onset Date Comments provider call back 01/02/2025 Encounter Details Date Type Department Care Team (Late st Contact Info) Description 01/02/2025 Telephone Gastroenterology - [place] [address] [facility] [address] [place] [phone] Patrick Aguilar MD 175 [facility] [address] [place], [place] [phone] provider call back Social History Tobacco Use Types Packs/Day Years Used Date Smoking Tobacco: Former Cigarettes Q uit: 11/28/2005 Smokeless Tobacco: Never Alcohol Use Standard Drinks/Week Comments No 0 (1 standard drink = 0.6 oz pur e alcohol) Sex and Gender Information Value Date Recorded Sex Assigned at Male 07/26/2024 9:07 AM EST Legal Sex Male 5:25 PM EST Gender Identity Male 07/26/2024 9:07 AM EST Sexual Orientation Choose not to disclose 2024 9:07 AM EST documented as of this encounter Progress Notes * Jami Gonzalez MA - 01/02/2025 2:45 PM EDT Left message for patient to call back and answer the below questions for Sarah to assess pt. Pleaseask the questions if no one is available to speak with him and so we don't have to play tag on the phone. Thanks Amina * NAOMY Zhang - 01/02/2025 1:53 PM EDT Please ask more questions, if any left lower quadrant abdominal pain, any nausea, any vomiting, anydiarrhea, constipation, rectal bleeding so I could assess the situation. TY * Jami Gonzalez MA - 01/02/2025 1:38 PM EDT Sarah, What input do you have on this message? Last seen 07/21/24 by Massimo. Please advise, Thanks Amina * Tyesha Luna - 01/02/2025 8:53 AM EDT Patient calling requesting penicillin be sent to his pharmacy, [facility]. States Massimo has prescribed him this for an infection in his intestines. Patient states the infection comes back every 6 months if he does not eat right or something gets stuck. Patient states he has a pinching / sharp pain in his lower left side. documented in this encounter Plan of Treatment Upcoming Encounters Date Type Department Care Team (Late st Contact Info) Description 01/25/2025 9:40 AM EDT Office Visit Gastroenterology - [place] 175 [facility] 175 [facility] [address] [place] [phone] Patrick Aguilar MD 175 [facility] [address] [place] [address] documented as of this encounter Visit Diagnoses Not on filedocumented in this encounter Care Teams Roofing Layer Relationship Specialty Start Date End Date Yoni Medel DO [facility] [address] [place] [id number] PCP - General Internal Medicine 11/12/20 documented as of this encounter
--- OUTSIDE RECORDS SUMMARY | 2025-01-04 12:08 | XMS_ITS | Clinical Summary ---
Author Organization [facility] Address [address] [place] [address] Care Team Providers Care Blue Line Trimmer Name Role Phone Dustin Tolentino Primary Care [...] age to complete this topic Care Teams Blue Line Trimmer Relationship Specialty Start Date End Date Dustin Tolentino DO 75 [facility] [address] [place] [phone] PCP - General Internal Medicine 01/08/17
== END 2025-01-04 12:40 | disposition home or self-care (01) ==
LOC: HO.HMCFM 11:02
PROVIDERS: PCP Family Medicine; Visit Provider Family Medicine
DX: Z00.00 Encounter for general adult medical examination without abnormal findings (principal); R73.01 Impaired fasting glucose; E78.5 Hyperlipidemia, unspecified; I35.0 Nonrheumatic aortic (valve) stenosis; R51.9 Headache, unspecified; Z85.46 Personal history of malignant neoplasm of prostate; D64.9 Anemia, unspecified; Z86.73 Personal history of transient ischemic attack (TIA), and cerebral infarction without residual deficits; Z12.11 Encounter for screening for malignant neoplasm of colon; H60.92 Unspecified otitis externa, left ear

== ENCOUNTER → 2025-01-04 11:02 | Outpatient (BNVA) | payer OTHER, SELFPAY | PROVIDERS: PCP Family Medicine; Visit Provider Family Medicine | DX: Z00.00 Encounter for general adult medical examination without abnormal findings (principal); I10 Essential (primary) hypertension; R73.01 Impaired fasting glucose; E78.5 Hyperlipidemia, unspecified; I35.0 Nonrheumatic aortic (valve) stenosis; R51.9 Headache, unspecified; D64.9 Anemia, unspecified; H60.92 Unspecified otitis externa, left ear; Z86.73 Personal history of transient ischemic attack (TIA), and cerebral infarction without residual deficits; Z85.46 Personal history of malignant neoplasm of prostate | CPT/HCPCS: 96127 ==

== ENCOUNTER 2025-02-02 07:47 | Outpatient (REF) | payer OTHER, SELFPAY ==
--- OUTSIDE RECORDS SUMMARY | 2025-02-02 07:50 | XMS_ITS | Clinical Summary ---
Author Organization [facility] Address [address] [place] [address] Care Team Providers Care Water Chaser Name Role Phone Dustin Tolentino Primary Care [...] age to complete this topic Care Teams Water Chaser Relationship Specialty Start Date End Date Dustin Tolentino DO 75 [facility] [address] [place] [address] PCP - General Internal Medicine 01/08/17
--- OUTSIDE RECORDS SUMMARY | 2025-02-02 07:50 | XMS_ITS | Clinical Summary ---
Author Organization [address] [place] [address] Address [address] [place] [address] Phone Care Team Providers Care Felt Hat Flanging Operator Name Role Phone Sukhwinder Hester MD Primary Care Provider [phone] Allergies Active Allergy Reactions Criticality Noted Date [...] 30 each 11 5 07/21/19 26 Active polyethylene glycol (MIRALAX) 17 gram packet Take 17 g by mouth 1 (one) time each day. 1530 g 5 04/10/20 25 Active Active Problems Problem Noted Date Diagnosed Date Gout 05/19/2017 Prediabetes 05/11/2017 Hepatocellular carcinoma (CMS/HCC V24, CMS/HCC V 28) 03/05/2017 Overview (05/20/2024): bx 01/22/17 Shalonda. Follow up at [facility] for liver transplant consideration. Chemoembolization February 2017, May/2017, October 2017 and March 2018. 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 + murmur 04/17/16 Radiation proctitis 11/04/2016 Renal cyst, right 11/04/2016 Overview (05/20/2024): US 10/18/15 Thrombocytopenia (CMS/HCC V24) 11/04/2016 Tubular adenoma of colon 11/04/2016 Overview (05/20/2024): Colonoscopy 10/31/11. 5 year repeat Diverticulosis 11/04/2016 Overview (05/20/2024): Diverticulitis of lg intestine, 01/2017 Encounters Date Type Department Care Team Description 01/10/2025 9:20 AM EDT Office Visit Gastroenterology [facility] 175 [facility] [address] [phone] Rosina Diaz NP Left lower quadrant abdominal pain (Primary Dx); History of hepatocellular carcinoma; Gastroesophageal reflux disease without esophagitis; Chronic constipation; Radiation induced proctitis; History of esophageal varices; History of adenomatous polyp of colon 01/10/2025 Telephone Gastroenterology [facility] 175 [facility] [address] [phone] Rosina Diaz NP 01/02/2025 Telephone Gastroenterology [facility] [address] [phone] Patrick Aguilar MD from Last 3 Months Immunizations Name Administration Dates Next Due Influenza trivalent, 0.5mL (Fluad) 65yo and olde r 01/30/2020 Influenza, Unspecified 04/26/2019 [email or web address] SARS-CoV-2 COVID -19, vector-nr, rS-Ad26, preservative free [...] polyp UPPER GASTROINTESTINAL ENDOSCOPY 12/31/19 17 PROCEDURE: CO UPPER GI ENDOSCOPY PERFORMED; COMMENT: small varices, mild portal gastropathy BACK SURGERY 06/12/19 Left PROCEDURE: HISTORICAL BACK SURGERY; COMMENT: L4-L5 microdiscectomy FLEXIBLE SIGMOIDOSCOPY 05/06/20 18 PROCEDURE: HISTORICAL FLEXIBLE SIGMOIDOSCOPY; COMMENT: radiation proctitis with bleeding UPPER GASTROINTESTINAL ENDOSCOPY 05/06/20 18 PROCEDURE: CO UPPER GI ENDOSCOPY PERFORMED; COMMENT: grade 2 esophageal varices OTHER SURGICAL HISTORY 2019 Right PROCEDURE: INCISION OF EYE FOR GLAUCOMA CATARACT EXTRACTION 2020 Right PROCEDURE: HISTORICAL CATARACT REMOVAL COLONOSCOPY 11/20/19 PROCEDURE: HISTORICAL COLONOSCOPY; COMMENT: tubular adenomas, diverticulosis, radiation proctitis ESOPHAGOGASTRODUODENOSCOPY 11/20/19 PROCEDURE: CO ESOPHAGOGASTRODUODENOSCOPY TRANSORAL DIAGNOSTIC; COMMENT: hiatal hernia, truncated [...] Male 07/26/2024 9:07 AM EST Sexual Orientation Straight 01/11/2025 9: 22 AM EDT Obstetrics History Last Filed Vital Signs Vital Sign Reading Time Taken Comments Blood Pressure 130/74 01/10/2025 9:33 AM EDT Pulse 56 01/10/2025 9:33 AM EDT Temperature - - Respiratory Rate 16 07/21/2024 2:42 PM EST Oxygen Saturation 98% 01/10/2025 9:33 AM EDT Inhaled Oxygen Concentration - - Weight 71.9 kg (158 lb 9.6 oz) 01/10/2025 9:33 A M EDT Height 180.3 cm (5' 11 ) 01/10/2025 9:33 AM EDT Body Mass Index 22.12 01/10/2025 9:33 AM EDT Plan of Treatment Upcoming Encounters Date Type Department Care Team (Late st Contact Info) Description 02/02/2025 3:15 PM EDT Appointment [facility] CT Scan [address] [place] [phone] 02/22/2025 2:30 PM EDT Appointment [facility] Endoscopy [address] [place] [phone] Patrick Aguilar MD [address] [place] [phone] 04/06/2025 1:40 PM EDT Office Visit Gastroenterology - [place] 175 [facility] 175 [facility] [address] [place] [phone] Patrick Aguilar MD [address] [place] [phone] Health Maintenance Due Date Last Done Comments [...] Screen 05/10/2022 Cholesterol Screening (Lipid Panel) 05/10/2022 02/12/2017 Falls Risk Assessment 05/10/2022 Medicare Annual Wellness Visit 05/10/2022 Social Influencers of Health Screening 05/10/2022 Depression Screening 06/08/2024 RSV Immunization Adult Patients (1 - 1-dose 75+ series) 2024 Influenza Vaccine (#1) 2025 , 04/05/2022, 01/30/2020, Additional history exists Colorectal Cancer Screening: Colonoscopy 11/19/2026 11/19/2021 DTaP,Tdap,and Td Vaccines (2 - Td or Tdap) 02/13/2027 02/13/2017 Hepatitis C Screening Completed 02/12/2017, 015 Zoster Vaccines Completed 04/19/2021, 06/2020, 02/19/2017 HIB [...] to Health Maintenance Results * Colonoscopy (11/19/2021) Pathologist [facility] Colonoscopy abstracted, no interpretation Anatomical Region Laterality Modality Other [facility] Provider HEALTH MAINTENANCE Final Result * Hepatitis C Screening (11/16/2014) Pathologist [facility] Hepatitis C Screening abstracted Historical Provider HEALTH MAINTENANCE Final Result from Last 3 Months or Most Recently Relevant to Health Maintenance Insurance [employer] MEDICARE ADVANTAGE MEDICAID - [place] Care Teams Felt Hat Flanging Operator Relationship Specialty Start Date End Date Sukhwinder Hester MD [address] [place] [phone] PCP - General Family Medicine 01/10/25
== END 2025-02-02 07:48 | disposition home or self-care (01) ==
LOC: HO.WFDLDS 07:47
PROVIDERS: Visit Provider Family Medicine
DX: Z13.89 Encounter for screening for other disorder (principal)

== ENCOUNTER 2025-02-13 14:07 | Outpatient (AMB) | payer OTHER, SELFPAY ==
--- NOTE | 2025-02-13 14:14 | A.OFFVIS_ITS ---
Vital Signs 02/13/25 14:15 Height 5 ft 11 in Weight 156 lb 8.451 oz BMI 21.8 BP 180/70 H Blood Pressure Location Lt brachial Position Sitting Pulse 57 Pulse Source Pulse Oximeter Intake Visit Reasons: Nonrheumatic aortic (valve) stenosis Allergies codeine Adverse Reaction (Mild, Verified 01/04/25 11:08) Headache Medication List - Last Reconciled 02/13/25 by Jose Roberto Diaz MD atorvastatin (Lipitor) 20 mg PO BEDTIME 90 days ferrous sulfate (FeroSul) 325 mg PO QAM fluticasone propionate 50 mcg/actuation (Flonase Allergy Relief) 1 spray intranasal Q12H 30 days latanoprost 0.005% 1 drp ophthalmic (eye) BEDTIME omeprazole 20 mg PO DAILY 90 days HPI Comments Details: Lucio is here for consultation regarding aortic stenosis. He has a history of PFO closure from 2005. Apparently, it was performed because of stroke. However, it does not appear that he actually follows up with Cardiology. Other comorbidities listed include liver cirrhosis/? Cancer; prostate cancer status post chemotherapy. History of alcohol excess but not in many years. Also ex- smoker. He gets random episodes of chest squeezing in no specific manner. Can happen any time, with rest or activity. He gets some shortness of breath with activity. No known coronary disease or myocardial infarction. [facility]LY [facility], [facility] Medical History (Updated 02/13/25 @ 14:45 by Jose Roberto Diaz MD) History of stroke History of liver cancer History of prostate cancer Cirrhosis Gallbladder calculus Liver disease Surgical History (Updated 02/13/25 @ 14:43 by Jose Roberto Diaz MD) Status post percutaneous patent foramen ovale closure Family History (Updated 02/13/25 @ 14:18 by Noemi Hermosillo) Father Alcoholism Heart attack Mother No problems noted. Social History (Updated 02/13/25 @ 14:19 by Noemi Hermosillo) Housing: House Alcohol intake: never Patient Tobacco Use Status: Never used Tobacco e-Cigarette/Vaping Use: Never Used service: No Current occupational status: retired Current occupational exposures/hazards: No Cognitive needs: No Hearing needs: No Vision needs: Yes Review of Systems Const Denies weakness ENT Reports dizziness Card Denies chest pain, Denies chest pain with activity, Denies syncope, Denies rapid heart rate, Denies pedal edema, Denies edema, Denies leg edema, Denies ligh theadedness, Reports palpitations, Denies dyspnea, Denies dyspnea on exertion and Denies orthopnea Resp Denies cough, Denies dyspnea and Denies dyspnea on exertion GI Denies hematochezia and Denies change in stool character Musc Denies abnormal gait, Denies muscle cramps, Denies muscle weakness, Denies numbness, Denies radiating pain into limb and Denies tingling Neuro Denies abnormal gait, Reports dizziness, Denies syncope, Denies numbness, Denies tingling and Denies weakness Endo Reports palpitations Physical Exam Vital Signs: Last Vital Signs Pulse 57 02/13/25 14:15 BP 180/70 H 02/13/25 14:15 BMI result Body Mass Index 21.8 Const General: comfortable and no acute distress Orientation/consciousness: patient oriented x3 HEENT Other: Unremarkable Head: Yes normal to inspection Neck Neck: Yes normal visual inspection Chest Chest palpation & inspection: normal inspection of the chest Resp Auscultation: clear to auscultation bilaterally Cardio Palpation: normal PMI Heart sounds: S1 normal heart sound present, S2 normal heart sound present, no gallops, Murmur heart sound present systolic (y) III/ and at the right sternal border and no rubs GI Palpation (GI): Soft to palpation Back/Spine/Pelvis Other: unremarkable Skin General skin exam: no rashes or lesions noted Neuro General: patient oriented x3 Extrem General: Yes normal to inspection Psych Mental Status: mental status grossly normal Assessment & Plan Assessment & Plan (1) Non-rheumatic aortic stenosis: Code(s): I35.0 - Nonrheumatic aortic (valve) stenosis Category: Medical (2) First degree AV block: Code(s): I44.0 - Atrioventricular block, first degree Category: Medical (3) Status post percutaneous patent foramen ovale closure: Code(s): Z87.74 - Personal history of (corrected) congenital malformations of heart and circulatory system Category: Surgical (4) Precordial chest pain: Code(s): R07.2 - Precordial pain Category: Medical Plan In the EKG, underlying rhythm is sinus at 57/Min; mild [place] prolongation to 240 milliseconds; normal corrected QT; no ischemic changes. Echocardiogram with LVEF of 65%. [id number] aortic stenosis. With regard to the aortic stenosis itself, we will monitor this periodically on echocardiogram. With regard to the chest pains, somewhat sound atypical. We will get an exercise stress perfusion imaging study. With regard to mild [place] prolongation, monitor on EKGs. Blood pressure is high today but he has got no hypertension history. Last 2 blood pressures are normal. Advised him to do home readings and let us know if it is more than 140s systolic consistently. Then we will need meds. Diastolic is okay. For follow-up after testing. Discussion Notes I discussed with the patient the importance of monitoring his heart valve disorder and the need for a stress test to evaluate his chest pain further. We also talked about the high blood pressure reading and the necessity of regular monitoring, either at home or at a local pharmacy. The patient was advised to follow up with his specialists for liver and prostate conditions. Patient was informed and verbally consented to the use of an ambient scribe for clinic note documentation during this visit. Orders: Orders CA stress test Today R07.2 - Precordial pain NM cardiolite stress test Today R07.2 - Precordial pain Coding Level of Care Code New Pt Level 4 (66989) Complex EM visit Add On G2211 Diagnoses Non-rheumatic aortic stenosis I35.0 First degree AV block I44.0 Status post percutaneous patent foramen ovale closure Z87.74 Precordial chest pain R07.2
[2025-02-13 14:15] VITALS: BP 180/70; PULSE 57; BMI 21.8
--- OUTSIDE RECORDS SUMMARY | 2025-02-13 16:28 | XMS_ITS | Clinical Summary ---
Author Organization [address] [place] [address] Address [address] [place] [address] Phone Care Team Providers Care Production Mechanic Tin Cans Name Role Phone Sukhwinder Hester MD Primary Care Provider Allergies Active Allergy Reactions Criticality Noted Date Comments Codeine Headache 05/06/2018 Medications omeprazole (PriLOSEC) [address] capsule Take 1 capsule (20 mg total) by mouth 1 (one) time each day. 4 Active OMEGA-3 FATTY ACIDS ORAL Take by mouth. Acti ve TURMERIC ORAL Take by mouth. A ctive fluticasone propionate (FLONASE NASL) Administer into affected nostril(s). Active multivit-min/fol ic/vit K/lycop (MEN'S MULTIVITAMIN ORAL) Take 1 tablet by mouth 1 (one) time each day. 7 Active ferrous sulfate 325 mg (65 mg iron) EC tablet Take 1 tablet (325 mg total) by mouth 1 (one) time each day with breakfast. Do not crush, chew, or split. 30 each 5 026 Active polyethylene glycol (MIRALAX) 17 gram packet Take 17 g by mouth 1 (one) time each day. 1530 g 5 025 Active amoxicillin-clav ulanate (AUGMENTIN) 875-125 mg per tablet Take 1 tablet by mouth 2 (two) times a day for 10 days. 20 each 5 025 Active bisacodyL (DULCOLAX) 5 mg EC tablet Take 2 tablets by mouth right before beginning bowel prep. See instructions provided by the office 2 tablet 5 Active polyethylene glycol (Golytely) 236-22.74-6.74 -5.86 gram solution Take 4L by mouth once for one dose. May substitue any PEG. Starting at 2PM the day before your procedure drink 1 8oz glasses at your own pace until you complete half of the gallon. Finish 2nd half of the gallon at 8PM. 4000 mL 5 Active Active Problems Problem Noted Date Diagnosed Date Gout 05/19/2017 Prediabetes 05/11/2017 Hepatocellular carcinoma (CMS/HCC V24, CMS/HCC V 28) 03/05/2017 Overview (05/20/2024): bx 01/22/17 Shalonda. Follow up at [facility] for liver transplant consideration. Chemoembolization February 2017, [...] Encounters Date Type Department Care Team Description 02/03/2025 Telephone Gastroenterology - [place] [address] [place] [phone] Nikki SchultzFRANTZ 02/02/2025 2:55 PM EDT - 02/02/2025 11:59 PM EDT Hospital Encounter CT Scan [address] [place] [phone] Left lower quadrant abdominal pain Discharge Disposition: Home or Self Care 01/10/2025 9:20 AM EDT Office Visit Gastroenterology - [place] [address] [phone] Rosina Diaz, TRACY Left lower quadrant abdominal pain (Primary Dx); History of hepatocellular carcinoma; Gastroesophageal reflux disease without esophagitis; Chronic constipation; Radiation induced proctitis; History of esophageal varices; History of adenomatous polyp of colon 01/10/2025 Telephone Gastroenterology [facility] [address] [phone] Rosina Diaz NP 01/02/2025 Telephone Gastroenterology [facility] [address] [phone] Patrick Aguilar MD from Last 3 Months Immunizations Name Administration Dates Next Due Influenza trivalent, 0.5mL (Fluad) 65yo and olde r 01/30/2020 Influenza, Unspecified 04/26/2019 [email or web address] SARS-CoV-2 COVID -19, vector-nr, rS-Ad26, preservative free [...] polyp UPPER GASTROINTESTINAL ENDOSCOPY 12/31/19 17 PROCEDURE: IL UPPER GI ENDOSCOPY PERFORMED; COMMENT: small varices, mild portal gastropathy BACK SURGERY 06/12/19 17 Left PROCEDURE: HISTORICAL BACK SURGERY; COMMENT: L4-L5 microdiscectomy FLEXIBLE SIGMOIDOSCOPY 05/06/20 18 PROCEDURE: HISTORICAL FLEXIBLE SIGMOIDOSCOPY; COMMENT: radiation proctitis with bleeding UPPER GASTROINTESTINAL ENDOSCOPY 05/06/20 18 PROCEDURE: IL UPPER GI ENDOSCOPY PERFORMED; COMMENT: grade 2 esophageal varices OTHER SURGICAL HISTORY 2019 Right PROCEDURE: INCISION OF EYE FOR GLAUCOMA CATARACT EXTRACTION 2020 Right PROCEDURE: HISTORICAL CATARACT REMOVAL COLONOSCOPY 11/20/19 PROCEDURE: HISTORICAL COLONOSCOPY; COMMENT: tubular adenomas, diverticulosis, radiation proctitis ESOPHAGOGASTRODUODENOSCOPY 11/20/19 PROCEDURE: IL ESOPHAGOGASTRODUODENOSCOPY TRANSORAL DIAGNOSTIC; COMMENT: hiatal hernia, truncated [...] Care Team (Late st Contact Info) Description 02/22/2025 2:30 PM EDT Appointment Endoscopy [address] [place] [address] Patrick Aguilar MD [address] [place] [address] 04/06/2025 1:40 PM EDT Office Visit Gastroenterology - [place] 175 [facility] 175 [facility] [address] [place] [phone] Patrick Aguilar MD [address] [place] [address] Health Maintenance Due Date Last Done Comments [...] Completed 02/12/2017, 015 Zoster Vaccines Completed 04/19/2021, 0906/2020, 02/19/2017 HIB Vaccines Aged Out No longer [...] Procedure Name Priority Date/Time Associated Diagnosis Comments CT ABDOMEN PELVIS W CONTRAST STAT 02/02/2025 3:10 PM EDT Left lower quadrant abdominal pain BASIC METABOLIC PANEL Routine 02/02/2025 8:39 AM EDT Left lower quadrant abdominal pain COLONOSCOPY Routine 11/19/2021 HEPATITIS C SCREENING Routine 11/16/2014 from Last 3 Months or Most Recently Relevant to Health Maintenance Results * CT Abdomen Pelvis w Contrast (02/02/2025 3:10 PM EDT) Anatomical Region Laterality Modality Body Computed Tomogra phy 02/02/2025 4:23 PM EDT Impressions 02/02/2025 4:26 PM EDT Thickening of the bladder wall, correlate with urinalysis for cystitis No acute infectious or inflammatory process otherwise. Cirrhosis with sequelae of portal hypertension. Cholelithiasis. -------- FINAL REPORT -------- Dictated By: Danni Chen Dictated Date: 02/02/2025 16:23 ET Assigned Physician: Danni Chen Reviewed and Electronically Signed By: Danni Chen Signed Date: 02/02/2025 16:26 ET Workstation ID: [id number] Transcribed By: Self Edit Transcribed Date: 02/02/2025 16:23 ET Narrative 02/02/2025 4:26 PM EDT PROCEDURE: CT ABDOMEN/PELVIS WITH CONTRAST INDICATION: Diverticulitis suspected LLQ PAIN TECHNIQUE: CT of the abdomen and pelvis following the intravenous administration of 90cc Isovue 370. Multiplanar reformats. The examination was performed utilizing dose reduction techniques. Total DLP 571 COMPARISON: No priors available. FINDINGS: LOWER THORAX: Lung bases are clear. HEPATOBILIARY: Cirrhosis. Post procedure changes of the atrophic left hepatic lobe with mass measuring 1.9 cm. Cholelithiasis. SPLEEN: Splenomegaly. PANCREAS: No focal mass or ductal dilatation. ADRENALS: No nodules. KIDNEYS/URETERS: Right renal cyst. PELVIC ORGANS/BLADDER: Circumferential thickening of the bladder. Correlate with urinalysis. Post procedure changes of the prostate. PERITONEUM / RETROPERITONEUM: No ascites or free air. No retroperitoneal lymphadenopathy. VESSELS: Extensive atherosclerotic vascular calcifications with tortuosity. Upper abdominal varices. GI TRACT: Sigmoid diverticulosis without definitive CT evidence for acute diverticulitis though early diverticulitis may be occult on CT. No bowel obstruction. BONES AND SOFT TISSUES: Scattered degenerative changes seen throughout the bones. Soft tissues are unremarkable. Procedure Note Danni Chen MD - 02/02/2025 PROCEDURE: CT ABDOMEN/PELVIS WITH CONTRAST INDICATION: Diverticulitis suspected LLQ PAIN TECHNIQUE: CT of the abdomen and pelvis following the intravenousadministration of 90cc Isovue 370. Multiplanar reformats. The examinationwas performed utilizing dose reduction techniques. Total DLP 571 COMPARISON: No priors available. FINDINGS: LOWER THORAX: Lung bases are clear. HEPATOBILIARY: Cirrhosis. Post procedure changes of the atrophic lefthepatic lobe with mass measuring 1.9 cm. Cholelithiasis. SPLEEN: Splenomegaly. PANCREAS: No focal mass or ductal dilatation. ADRENALS: No nodules. KIDNEYS/URETERS: Right renal cyst. PELVIC ORGANS/BLADDER: Circumferential thickening of the bladder.Correlate with urinalysis. Post procedure changes of the prostate. PERITONEUM / RETROPERITONEUM: No ascites or free air. No retroperitoneallymphadenopathy. VESSELS: Extensive atherosclerotic vascular calcifications withtortuosity. Upper abdominal varices. GI TRACT: Sigmoid diverticulosis without definitive CT evidence for acutediverticulitis though early diverticulitis may be occult on CT. No bowelobstruction. BONES AND SOFT TISSUES: Scattered degenerative changes seen throughout thebones. Soft tissues are unremarkable. IMPRESSION: Thickening of the bladder wall, correlate with urinalysis for cystitis No acute infectious or inflammatory process otherwise. Cirrhosis with sequelae of portal hypertension. Cholelithiasis. -------- FINAL REPORT -------- Dictated By: Danni Chen Dictated Date: 02/02/2025 16:23 ET Assigned Physician: Danni Chen Reviewed and Electronically Signed By: Danni Chen Signed Date: 02/02/2025 16:26 ET Workstation ID: [id number] Transcribed By: Self Edit Transcribed Date: 02/02/2025 16:23 ET Rosina Diaz TOOLROOM CHECKER IMG CT PROCEDURES Final Result * (ABNORMAL) Basic metabolic panel (02/02/2025 8:39 AM EDT) Sodium 136 133 - 145 mmol/L LAB CHEMISTRY METHOD 02/02/2025 10:[address] [facility] Potassium 4.7 3.5 - 5.5 mmol/L LAB CHEMISTRY METHOD 02/02/2025 10:[address] [facility] Chloride 104 96 - 110 mmol/L LAB CHEMISTRY METHOD 02/02/2025 10:[address] [facility] CO2 28 21 - 32 mmol/L LAB CHEMISTRY METHOD 02/02/2025 10:[address] [facility] Anion Gap 4 3 - 11 LAB CHEMISTRY METHOD 02/02/2025 10:[address] [facility] Glucose 130(H) 70 - 100 mg/dL LAB CHEMISTRY METHOD 02/02/2025 10:[address] [facility] BUN 18 5 - 25 mg/dL LAB CHEMISTRY METHOD 02/02/2025 10:[address] [facility] Creatinine 1.10 0.70 - 1.30 mg/dL LAB CHEMISTRY METHOD 02/02/2025 10:[address] [facility] eGFR 70 >=60 mL/min/1. 73m2 LAB CHEMISTRY METHOD 02/02/2025 10:[address] [facility] Comment:Calculation based on the Chronic Kidney Disease Epidemiology Collaboration (CKD-EPI) equation refit without adjustment for race. BUN/Creatinine Ratio 16.4 LAB CHEMISTRY METHOD 02/02/2025 10:[address] [facility] Calcium 9.8 8.5 - 10.5 mg/dL LAB CHEMISTRY METHOD 02/02/2025 10:[address] [facility] Blood Venous blood specimen / Unknown Venipuncture / Unknown 02/02/2025 8:39 AM EDT 02/02/2025 8:39 AM EDT Rosina Diaz TOOLROOM CHECKER LAB BLOOD ORDERABLES Final [facility]u lt [facility] [address] [place] [address], [place] [phone] * Colonoscopy (11/19/2021) Colonoscopy abstracted, no interpretation Anatomical Region Laterality Modality Other Historical Provider HEALTH MAINTENANCE Final Result * Hepatitis C Screening (11/16/2014) Hepatitis C Screening abstracted Historical Provider HEALTH MAINTENANCE Final Result from Last 3 Months or Most Recently Relevant to Health Maintenance Insurance [employer] MEDICARE ADVANTAGE MEDICAID - [place] Care Teams Production Mechanic Tin Cans Relationship Specialty Start Date End Date Sukhwinder Hester MD PCP - General Family Medicine 01/10/25
--- OUTSIDE RECORDS SUMMARY | 2025-02-13 16:28 | XMS_ITS | Clinical Summary ---
Author Organization [facility] Address [address] [place] [address] Care Team Providers Care Profiling Machine Setup Operator Name Role Phone Dustin Tolentino Primary Care [...] age to complete this topic Care Teams Profiling Machine Setup Operator Relationship Specialty Start Date End Date Dustin Tolentino DO [address] [facility] [address] [place] [address] PCP - General Internal Medicine 01/08/17
== END 2025-02-13 14:40 | disposition home or self-care (01) ==
LOC: HO.HCS 14:07
PROVIDERS: PCP Family Medicine; Visit Provider Internal Medicine
DX: I35.0 Nonrheumatic aortic (valve) stenosis (principal); I44.0 Atrioventricular block, first degree; Z87.74 Personal history of (corrected) congenital malformations of heart and circulatory system; R07.2 Precordial pain
CPT/HCPCS: 99204; G2211

== ENCOUNTER → 2025-02-13 14:07 | Outpatient (BNVA) | payer OTHER, SELFPAY | PROVIDERS: PCP Family Medicine; Visit Provider Internal Medicine | DX: I35.0 Nonrheumatic aortic (valve) stenosis (principal); R07.2 Precordial pain; I44.0 Atrioventricular block, first degree; Z87.74 Personal history of (corrected) congenital malformations of heart and circulatory system; Z87.891 Personal history of nicotine dependence; F10.11 Alcohol abuse, in remission; Z13.89 Encounter for screening for other disorder ==

== ENCOUNTER 2025-04-07 09:37 | Outpatient (AMB) | payer OTHER, SELFPAY ==
--- NOTE | 2025-04-07 09:43 | MHC.PC.OV ---
Vital Signs 04/07/25 09:48 Height 5 ft 11 in Weight 159 lb BMI 22.2 BP 100/60 Blood Pressure Location Rt brachial Position Sitting Respiration 16 Pulse 70 Pulse Source Pulse Oximeter Temp 98.2 F Temp Source Oral Pulse Oximetry (%) 97 Oxygen Delivery Method Room Air Intake Visit Reasons: f/u HLD 3 months Intake Note: patient is scheduled for 3month lab review labs have been completed. patient states he had right side pain w/constipation, he also says he toke otc ducolax to help with bowel movment. Ore Crushing Dust Collector Required: No Allergies codeine Adverse Reaction (Mild, Verified 04/07/25 09:47) Headache Medication List - Last Reconciled 04/07/25 by Sukhwinder Hester MD atorvastatin (Lipitor) 20 mg PO BEDTIME 90 days ferrous sulfate (FeroSul) 325 mg PO QAM fluticasone propionate 50 mcg/actuation (Flonase Allergy Relief) 1 spray intranasal Q12H 30 days latanoprost 0.005% 1 drp ophthalmic (eye) BEDTIME omeprazole 20 mg PO DAILY 90 days Tobacco use date assessed: 01/04/25 Dental Screening Dental Screen Date: 01/04/25 HPI f/u HLD 3 months HPI Details 74 y/[facility] male [facility] Had been following up with Cardiology for precordial chest pain. Work up had shown mild to moderate aortic stenosis. BP had been high at his cardiology visit. No hx of hypertension. BP today 100/60, 70p. Reports significant constipation. [facility] Medical History (Updated 04/07/25 @ 10:13 by Robert Savage) History of stroke History of liver cancer History of prostate cancer Cirrhosis Gallbladder calculus Liver disease Surgical History (Updated 02/13/25 @ 14:43 by Jose Roberto Diaz MD) Status post percutaneous patent foramen ovale closure Family History (Updated 02/13/25 @ 14:18 by Noemi Hermosillo) Father Alcoholism Heart attack Mother No problems noted. Social History (Updated 02/13/25 @ 14:19 by Noemi Hermosillo) Housing: House Alcohol intake: never Patient Tobacco Use Status: Never used Tobacco e-Cigarette/Vaping Use: Never Used service: No Current occupational status: retired Current occupational exposures/hazards: No Cognitive needs: No Hearing needs: No Vision needs: Yes Questionnaire Thrive Questionnaire Date Thrive assessed: 01/04/25 YVES-7 AMB Questionnaire YVES-7 Date YVES - 7 assessed: 01/04/25 Source: Developed by Drs. Yoni Geronimo, Bronwyn Flor, Anatoly Haas and colleagues, with an educational blanka from [employer]. Review of Systems Const Denies chills, Denies fatigue, Denies fever(s), Denies headache(s) and Denies weakness ENT Denies dizziness and Denies headache(s) Card Denies dyspnea Resp Denies cough, Denies dyspnea, Denies wheezing and Denies other (shortness of breath) Musc Denies numbness and Denies tingling Neuro Denies dizziness, Denies headache(s), Denies numbness, Denies tingling and Denies weakness Psych Denies anxiety and Denies depression Endo Denies fatigue Aller/Immun Denies wheezing Physical exam (Primary Care) Vital Signs: Last Vital Signs Temp 98.2 F 04/07/25 09:48 Pulse 70 04/07/25 09:48 Resp 16 04/07/25 09:48 BP 100/60 04/07/25 09:48 Pulse Ox 97 04/07/25 09:48 Oxygen Delivery Method Room Air 04/07/25 09:48 BMI result Body Mass Index 22.2 Tobacco/Smoking Status: Tobacco use Status Tobacco use date assessed 01/04/25 04/07/25 09:44 Patient Tobacco Use Status Never used Tobacco 04/07/25 09:44 e-Cigarette/Vaping Use Never Used 04/07/25 09:44 Thrive Assessment: Date of Thrive Assessment Date Thrive assessed 01/04/25 04/07/25 09:44 Const General: well developed; No acute distress Nutritional Appearance: well nourished Orientation/consciousness: patient oriented x3 HENMT Head: Yes normocephalic and Yes atraumatic Eyes General: appearance normal, both eyes and all related structures Pupils: Equal, round and reactive pupils present EOM: EOMs intact bilaterally Resp Effort & Inspection: normal respiratory effort Auscultation: clear to auscultation bilaterally Cardio Rate: regular rate Rhythm: regular rhythm Heart sounds: S1 normal heart sound present, S2 normal heart sound present, no gallops, Murmur heart sound present and no rubs Neuro General: patient oriented x3 and gait normal Cranial nerves: Yes Equal, round and reactive pupils present Psych Affect: normal affect Coding Level of Care Code Est Pt Level 4 (61964) Diagnoses Hyperlipidemia E78.5 Elevated blood pressure reading R03.0 Aortic stenosis I35.0 Precordial chest pain R07.2 Aortic root dilatation I77.810 Constipation K59.00 Assessment & Plan Assessment & Plan (1) Hyperlipidemia: Code(s): E78.5 - Hyperlipidemia, unspecified Category: Medical Plan: Has not had his labs drawn and can do so prior to next visit (2) Elevated blood pressure reading: Code(s): R03.0 - Elevated blood-pressure reading, without diagnosis of hypertension Category: Medical Plan: Intermittently elevated blood pressures. Blood pressure today is fine Will give him a blood pressure monitor and have him check at home regularly. If blood pressures greater than 140/90 he will let know. Avoid salt/sodium Get plenty of sleep Will monitor (3) Aortic stenosis: Code(s): I35.0 - Nonrheumatic aortic (valve) stenosis Category: Medical Plan: Now followed by cardiology (4) Precordial chest pain: Code(s): R07.2 - Precordial pain Category: Medical Plan: Followed by cardiology and has nuclear stress test ordered (5) Aortic root dilatation: Code(s): I77.810 - Thoracic aortic ectasia Category: Medical Plan: As above (6) Constipation: Code(s): K59.00 - Constipation, unspecified Category: Medical Plan: Patient has complaints of significant constipation requiring digital disimpaction Hydrate well and will give him a script for MiraLax. He can also use soluble fiber tablets. Referred back to his extension service specialist in charge Orders: Referrals Gastroenterology Referral K59.00 - Constipation, unspecified Medications: New polyethylene glycol 3350 (Miralax) 17 grams PO DAILY 14 ea 0RF 14 days calcium polycarbophil (FiberCon) 625 mg PO DAILY 30 tabs 2RF 30 days blood pressure monitor Automatic, Digital. Dx: I10. Daily As directed, 999 days/lifetime 1 ea 0RF I10 - Essential (primary) hypertension
[2025-04-07 09:48] VITALS: BP 100/60; PULSE 70; RESP 16; TEMP 36.8; O2SAT 97; BMI 22.2
--- OUTSIDE RECORDS SUMMARY | 2025-04-07 10:43 | XMS_ITS | Encounter Summary ---
Author Organization [facility] Address [address] [place] [phone] Care Team Providers Care Administrative Support Associate Name Role Phone Sukhwinder Hester MD Primary Care Provider [phone] Reason for Visit * Reason Onset Date Comments appointment 04/05/2025 Encounter Details Date Type Department Care Team (Late st Contact Info) Description 04/05/2025 Telephone Gastroenterology - [place] [address] [place] [address] Rosina Diaz, TRACY [address] [place] [phone] Social History Tobacco Use Types Packs/Day Years Used Date Smoking Tobacco: Former Cigarettes Q uit: 11/28/2005 Smokeless Tobacco: Never Alcohol Use Standard Drinks/Week Comments No 0 (1 standard drink = 0.6 oz pur e alcohol) Interpersonal Safety Answer Date Record ed Physical Abuse Unrecognized value 02/22/2025 Verbal Abuse Unrecognized value 02/22/2025 Sex and Gender Information Value Date Recorded Sex Assigned at Male 07/26/2024 9:07 AM EST Legal Sex Male 5:25 PM EST Gender Identity Male 07/26/2024 9:07 AM EST Sexual Orientation Straight 01/11/2025 9: 22 AM EDT documented as of this encounter Progress Notes * Tyesha Luna - 04/05/2025 2:47 PM EDT Patient is currently scheduled with Dr Aguilar 04/06 however previously saw Rosina 01/10 for further care/treatment. Rosina has stated she would like a 6 month f/u. Patient is est with Rosina now. Leftmessage for patient to reschedule office visit with Rosina after the new year. documented in this encounter Plan of Treatment Upcoming Encounters Date Type Department Care Team (Late st Contact Info) Description 11/08/2025 2:00 PM EDT Office Visit Gastroenterology - [address] [place] [address] Rosina Diaz, TRACY [address] [place] [address] documented as of this encounter Visit Diagnoses Not on filedocumented in this encounter Care Teams Administrative Support Associate Relationship Specialty Start Date End Date Sukhwinder Hester MD [address] [place] [address] Dr Álvarez [place] PCP - General Family Medicine 01/10/25 documented as of this encounter
--- OUTSIDE RECORDS SUMMARY | 2025-04-07 10:43 | XMS_ITS | Encounter Summary ---
Author Organization [facility] Address [address] [place] [address] Care Team Providers Care Central Communications Specialist Name Role Phone Sukhwinder Hester MD Primary Care Provider [phone] Encounter Details Date Type Department Care Team (Late Contact Info) Description 03/16/2025 Results Follow-Up Gastroenterology - [place] [address] [facility] [address] [facility] [address] [place] [address] Rosina Diaz, TRACY [address] [place] [address] Social History Tobacco Use Types Packs/Day Years [...] as of this encounter Progress Notes * Neetu Núñez [place] - 03/20/2025 2:13 PM EDT Called pt to go over MRI results, no answer lvm documented in this encounter Plan of Treatment Upcoming Encounters Date Type Department Care Team (Late st Contact Info) Description 11/08/2025 2:00 PM EDT Office Visit Gastroenterology - [address] [place] [address] Rosina Diaz NP [address] [place] [address] documented as of this encounter Visit Diagnoses Not on filedocumented in this encounter Care Teams Central Communications Specialist Relationship Specialty Start Date End Date Sukhwinder Hester MD [address] [place] [address] Dr Álvarez [place] PCP - General Family Medicine 01/10/25 documented as of this encounter
--- OUTSIDE RECORDS SUMMARY | 2025-04-07 10:43 | XMS_ITS | Clinical Summary ---
Author Organization [facility] Address [address] [place] [address] Care Team Providers Care Precision Inspector Name Role Phone Dustin Tolentino Primary Care [...] age to complete this topic Care Teams Precision Inspector Relationship Specialty Start Date End Date Dustin Tolentino DO [address] [facility] [address] [place] [address] PCP - General Internal Medicine 01/08/17
--- OUTSIDE RECORDS SUMMARY | 2025-04-07 10:44 | XMS_ITS | Clinical Summary ---
Author Organization [address] [place] [address] Address [address] [place] [address] Phone Care Team Providers Care Triage Licensed Practical Nurse Name Role Phone Sukhwinder Hester MD Primary Care Provider Allergies Active Allergy Reactions Criticality Noted Date Comments Ciprofloxacin 04/09/2017 Other Reaction(s): Other (See Comments) Patient has severe tendon pain on this medication. Codeine Headache 05/06/2018 Medications omeprazole (PriLOSEC) 20 [...] chew, or split. 30 each 11 5 026 Active polyethylene glycol (MIRALAX) 17 gram packet Take 17 g by mouth 1 (one) time each day. 1530 g 5 025 Active bisacodyL (DULCOLAX) 5 mg [...] of the gallon at 8PM. 4000 mL Active Active Problems Problem Noted Date Diagnosed Date Gout 05/19/2017 Prediabetes 05/11/2017 Hepatocellular carcinoma (CMS/HCC V24, CMS/HCC V 28) 03/05/2017 Overview (05/20/2024): bx 01/22/17 [facility]. Follow up at [facility] for liver transplant consideration. Chemoembolization February 2017, [...] Encounters Date Type Department Care Team Description 04/05/2025 Telephone Gastroenterology - [place] [address] [place] [address] Rosina Diaz NP 03/16/2025 Results Follow-Up Gastroenterology - [place] [address] [facility] [address] [place] [phone] Rosina Diaz NP 03/13/2025 9:53 AM EDT - 03/13/2025 11:59 PM EDT Hospital Encounter [facility] MRI [address] [place] [phone] Rectal mass Discharge Disposition: Home or Self Care 02/27/2025 Telephone Gastroenterology [facility] [address] [facility] [address] [phone] Rosina Diaz NP 02/22/2025 2:54 PM EDT Anesthesia Event [facility] Endoscopy [address] [place] [phone] Carloz Araujo MD Abrokwah, Foster Myles G, [employer] 02/22/2025 1:51 PM EDT - 02/22/2025 11:59 PM EDT Hospital Encounter [facility] Endoscopy [address] [place] [address] Patrick Aguilar MD Saliga, Jesse L, MD Hx of colonic polyps; Esophageal varices (CMS/HCC V24, CMS/HCC V28) Discharge Disposition: Home or Self Care 02/03/2025 Telephone Gastroenterology [facility] [address] [phone] Nikki Schultz MA 02/02/2025 2:55 PM EDT - 02/02/2025 11:59 PM EDT Hospital Encounter [facility] CT Scan [address] [place] [address] Left lower quadrant abdominal pain Discharge Disposition: Home or Self Care 01/10/2025 9:20 AM EDT Office Visit Gastroenterology [facility] [address] [phone] Rosina Diaz NP Left lower quadrant abdominal pain (Primary Dx); History of hepatocellular carcinoma; Gastroesophageal reflux disease without esophagitis; Chronic constipation; Radiation induced proctitis; History of esophageal varices; History of adenomatous polyp of colon 01/10/2025 Telephone Gastroenterology - [place] [address] [facility] [address] [place] [address] Rosina Diaz NP from Last 3 Months Immunizations Immunization Administration Dates Next Due Influenza trivalent, 0.5mL (Fluad) 65yo and olde r 01/30/2020 Influenza, Unspecified 04/26/2019 [employer] SARS-CoV-2 COVID -19, vector-nr, rS-Ad26, preservative free 10/04/2020 Surgical History Surgery Date Site/Laterality Comments OTHER SURGICAL HISTORY PROCEDURE: HISTORY OTHER; COMMENT: PFO repair BACK SURGERY PROCEDURE: HISTORICAL BACK SURGERY; COMMENT: Lumbar vertebroplasty UPPER GASTROINTESTINAL ENDOSCOPY 04/2015 PROCEDURE: UPPER GI ENDOSCOPY/EXAM COLONOSCOPY 10/31/19 12 PROCEDURE: HISTORICAL COLONOSCOPY; COMMENT: 5 year repeat COLONOSCOPY 12/31/19 PROCEDURE: HISTORICAL COLONOSCOPY; COMMENT: polyp UPPER GASTROINTESTINAL ENDOSCOPY 12/31/19 17 PROCEDURE: LA UPPER GI ENDOSCOPY PERFORMED; COMMENT: small varices, mild portal gastropathy BACK SURGERY 06/12/19 17 Left PROCEDURE: HISTORICAL BACK SURGERY; COMMENT: L4-L5 microdiscectomy FLEXIBLE SIGMOIDOSCOPY 05/06/20 18 PROCEDURE: HISTORICAL FLEXIBLE SIGMOIDOSCOPY; COMMENT: radiation proctitis with bleeding UPPER GASTROINTESTINAL ENDOSCOPY 05/06/20 18 PROCEDURE: LA UPPER GI ENDOSCOPY PERFORMED; COMMENT: grade 2 esophageal varices OTHER SURGICAL HISTORY 2019 Right PROCEDURE: INCISION OF EYE FOR GLAUCOMA CATARACT EXTRACTION 2020 Right PROCEDURE: HISTORICAL CATARACT REMOVAL COLONOSCOPY 11/20/19 PROCEDURE: HISTORICAL COLONOSCOPY; COMMENT: tubular adenomas, diverticulosis, radiation proctitis ESOPHAGOGASTRODUODENOSCOPY 11/20/19 PROCEDURE: LA ESOPHAGOGASTRODUODENOSCOPY TRANSORAL DIAGNOSTIC; COMMENT: hiatal hernia, truncated varices. CARDIAC SURGERY hole in heart Medical History Medical History Date Comments Cirrhosis [...] 11/04/2016 DX:Angiodysplasi a; COMMENT: Rectal bleeding Thrombocytopenia ([facility]/HCC V24) 11/04/2016 D X:Thrombocytopenia (HCC) Renal cyst, [...] adenoma of colon Esophageal reflux DX:Esophageal reflux TIA (transient ischemic attack) Migraines Hypertension Chest pain Liver cancer (CMS/HCC V24, CMS/HCC V28) Family History Medical History Relation Name Comments [...] Sign Reading Time Taken Comments Blood Pressure 108/63 02/22/2025 3:41 PM EDT Pulse 68 02/22/2025 3:41 PM EDT Temperature 36.7 C (98.1 F) 02/22/2025 3:21 PM EDT Respiratory Rate 16 02/22/2025 3:41 PM EDT Oxygen Saturation 99% 02/22/2025 3:41 PM EDT Inhaled Oxygen Concentration - - Weight 71.2 kg (157 lb) 02/22/2025 2:15 PM EDT Height 182.9 cm (6') 02/22/2025 2:15 PM EDT Body Mass Index 21.29 02/22/2025 2:15 PM EDT Plan of Treatment Upcoming Encounters Date Type Department Care Team (Late st Contact Info) Description 11/08/2025 2:00 PM EDT Office Visit Gastroenterology - [address] [facility] [address] [place] [phone] Rosina Diaz, TRACY [address] [place] [phone] Health Maintenance Due Date Last Done Comments Pneumococcal Vaccine: 50+ Years (3 of 3 - PCV20 or PCV21) 05/26/2017 02/13/2017, 05/26/2012 Hepatitis A Vaccines (3 of 3 - Hep A Twinrix risk 3-dose series) 08/17/2017 03/19/2017, 02/13/2017 Hepatitis B Vaccines (3 of 3 - Hep B Twinrix risk 3-dose series) 08/17/2017 03/19/2017, 02/13/2017 COVID-19 Vaccine (2 - Urszula risk series) 11/01/2020 10/04/2020 Abdominal Aortic Aneurysm (AAA) Screen 05/10/2022 Cholesterol Screening (Lipid Panel) 05/10/2022 02/12/2017 Medicare Annual Wellness Visit 05/10/2022 Social Influencers of Health Screening 05/10/2022 Depression Screening 06/08/2024 RSV Immunization Adult Patients (1 - 1-dose 75+ series) 2024 Influenza Vaccine (#1) 2025 3, 04/05/2022, 01/30/2020, Additional history exists Falls Risk Assessment 02/22/2026 02/22/2025 DTaP,Tdap,and Td Vaccines (2 - Td or Tdap) 02/13/2027 02/13/2017 Colorectal Cancer Screening: Colonoscopy 02/22/2030 02/22/2025, 11/19/2021 Hepatitis C Screening Completed 02/12/2017, 015 Zoster [...] Procedure Name Priority Date/Time Associated Diagnosis Comments MR PELVIS WO AND W CONTRAST Routine 03/13/2025 11:49 AM EDT Rectal mass COLONOSCOPY Routine 02/22/2025 3:20 PM EDT Hx of colonic polyps Esophageal varices (CMS/HCC V24, CMS/HCC V28) EGD Routine 02/22/2025 3:20 PM EDT Hx of colonic polyps Esophageal varices (CMS/HCC V24, CMS/HCC V28) TISSUE EXAM Routine 02/22/2025 3:16 PM EDT Hx of colonic polyps Esophageal varices (CMS/HCC V24, CMS/HCC V28) CT ABDOMEN PELVIS W CONTRAST STAT 02/02/2025 3:10 PM EDT Left lower quadrant abdominal pain BASIC METABOLIC PANEL Routine 02/02/2025 8:39 AM EDT Left lower quadrant abdominal pain HEPATITIS C SCREENING Routine 11/16/2014 from Last 3 Months or Most Recently Relevant to Health Maintenance Results * MR Pelvis wo and w Contrast (03/13/2025 11:49 AM EDT) Anatomical Region Laterality Modality Pelvis, Body Magnetic Resonan ce 03/15/2025 2:07 PM EDT Impressions 03/15/2025 2:38 PM EDT Mildly lobulated circumferential lobulated mural thickening of the lower rectum without a discrete focal mass. There is no associated diffusion abnormality or infiltration of the adjacent mesenteric fat. -------- FINAL REPORT -------- Dictated By: Zhang Zuleta Dictated Date: 03/15/2025 14:07 ET Assigned Physician: Zhang Zuleta Reviewed and Electronically Signed By: Zhang Zuleta Signed Date: 03/15/2025 14:38 ET Workstation ID: [id number] Transcribed By: Self Edit Transcribed Date: 03/15/2025 14:07 ET Narrative 03/15/2025 2:38 PM EDT PROCEDURE: Contrast enhanced MRI of the pelvis. TECHNIQUE: Multiplanar multisequence MRI of the pelvis with and without intravenous contrast administration. IV contrast dose: 18 mL intravenous Dotarem from a 20 mL vial with 2 mL discarded. HISTORY: Rectal Mass COMPARISON: 01/25/2025. FINDINGS: There is slightly lobulated circumferential mural thickening of the lower rectum, extending from just above the level of the sphincter complex overall length of approximately 3.5 cm. No associated diffusion abnormality. No infiltration of the mesorectal fat. No pelvic lymphadenopathy. Extensive sigmoid diverticulosis. Trace pelvic ascites. The urinary bladder is underdistended, limiting evaluation, but there is mild mural thickening and moderate mural trabeculation. The prostate gland is upper normal in size. Seminal vesicles are grossly normal. Mild degenerative changes of the visualized lumbar spine. There are several perineural cysts in the lower lumbar and upper sacral region. Mild degenerative changes of both hips. There is patchy marrow edema in both pubic rami, slightly more extensive on the right, which may represent a stress reaction. Procedure Note Zhang Zuleta MD - 03/15/2025 PROCEDURE: Contrast enhanced MRI of the pelvis. TECHNIQUE: Multiplanar multisequence MRI of the pelvis with and withoutintravenous contrast administration. IV contrast dose: 18 mL intravenous Dotarem from a 20 mL vial with 2 mLdiscarded. HISTORY: Rectal Mass COMPARISON: 01/25/2025. FINDINGS: There is slightly lobulated circumferential mural thickening of the lowerrectum, extending from just above the level of the sphincter complexoverall length of approximately 3.5 cm. No associated diffusionabnormality. No infiltration of the mesorectal fat. No pelvic lymphadenopathy. Extensive sigmoid diverticulosis. Trace pelvic ascites. The urinary bladder is underdistended, limiting evaluation, but there ismild mural thickening and moderate mural trabeculation. The prostategland is upper normal in size. Seminal vesicles are grossly normal. Mild degenerative changes of the visualized lumbar spine. There areseveral perineural cysts in the lower lumbar and upper sacral region.Mild degenerative changes of both hips. There is patchy marrow edema inboth pubic rami, slightly more extensive on the right, which may representa stress reaction. IMPRESSION: Mildly lobulated circumferential lobulated mural thickening of the lowerrectum without a discrete focal mass. There is no associated diffusionabnormality or infiltration of the adjacent mesenteric fat. -------- FINAL REPORT -------- Dictated By: Zhang Zuleta Dictated Date: 03/15/2025 14:07 ET Assigned Physician: Zhang Zuleta Reviewed and Electronically Signed By: Zhang Zuleta Signed Date: 03/15/2025 14:38 ET Workstation ID: [id number] Transcribed By: Self Edit Transcribed Date: 03/15/2025 14:07 ET Rosina Diaz NP IMG MRI PROCEDURES Final Result * COLONOSCOPY Anesthesia - MAC; [facility] ENDOSCOPY (02/22/2025 3:20 PM EDT) Anatomical Region Laterality Modality Other 02/22/2025 3:05 PM EDT Impressions 02/22/2025 3:24 PM EDT - Rectal mass. - Diverticulosis in the sigmoid colon. - Rule out malignancy, partially obstructing tumor in the distal rectum. Biopsied. - The examination was suspicious for a malignant-appearing tumor. Recommendation: - Await pathology results. - Refer to a colo-rectal surgeon at appointment to be scheduled. - Perform CT scan (computed tomography) of the abdomen with contrast at appointment to be scheduled. Narrative 02/22/2025 3:24 PM EDT [facility] GI Patient Name: Gi Sanchez Procedure Date: 02/22/2025 3:05 PM Date of : 1950 Age: 74 Gender: Male Note Status: Finalized Attending MD: Patrick Aguilar MD, Procedure Date No Time: 02/22/2025 Procedure: Colonoscopy Indications: High risk colon cancer surveillance: Personal history of colonic polyps Providers: Patrick Aguilar MD Referring MD: Patrick Aguilar MD Medicines: Propofol per Anesthesia Complications: No immediate complications. Estimated Blood Loss: Estimated blood loss was minimal. Procedure: Pre-Anesthesia Assessment: - ASA Grade Assessment: III - A patient with severe systemic disease. After I obtained informed consent, the scope was passed under direct vision. Throughout the procedure, the patient's blood pressure, pulse, and oxygen saturations were monitored continuously.The Colonoscope was introduced through the anus and advanced to the cecum, identified by appendiceal orifice and ileocecal valve. The colonoscopy was performed without difficulty. The patient tolerated the procedure well. The quality of the bowel preparation was good. Findings: The digital rectal exam revealed a rectal mass. Many diverticula were found in the sigmoid colon. A polypoid partially obstructing medium-sized mass was found in the distal rectum. The mass was circumferential. The mass measured four cm in length. Oozing was present. This was biopsied with a cold forceps for histology. Estimated blood loss was minimal. Procedure Code(s): --- Professional --- 81041, Colonoscopy, flexible; with biopsy, single or multiple Diagnosis Code(s): --- Professional --- Z86.010, Personal history of colonic polyps K62.89, Other specified diseases of anus and rectum D49.0, Neoplasm of unspecified behavior of digestive system K56.690, Other partial intestinal obstruction K57.30, Diverticulosis of large intestine without perforation or abscess without bleeding CPT copyright 2020 [employer]. All rights reserved. The codes documented in this report are preliminary and upon director of volunteer services review may be revised to meet current compliance requirements. Patrick Aguilar MD 02/22/2025 3:24:35 PM This report has been signed electronically.Patrick Aguilar MD Number of Addenda: 0 Note Initiated On: 02/22/2025 3:05 PM Scope In: Scope Out: Endoscopy Department at [facility] - [address] [place] [phone] Procedure Note Patrick Aguilar MD - 02/22/2025 [facility] GI Patient Name: Gi Sanchez Procedure Date: 02/22/2025 3:05 PM Date of : 1950 Age: 74 Gender: Male Note Status: Finalized Attending MD: Patrick Aguilar MD, Procedure Date No Time: 02/22/2025 Procedure: Colonoscopy Indications: High risk colon cancer surveillance: Personalhistory of colonic polyps Providers: Patrick Aguilar MD Referring MD: Patrick Aguilar MD Medicines: Propofol per Anesthesia Complications: No immediate complications. Estimated Blood Loss: Estimated blood loss was minimal. Procedure: Pre-Anesthesia Assessment: - ASA Grade Assessment: III - A patient with severe systemic disease. After I obtained informed consent, the scope was passed under direct vision. Throughout theprocedure, the patient's blood pressure, pulse, and oxygen saturations were monitored continuously.The Colonoscope was introduced through the anus and advanced to the cecum, identified by appendiceal orifice and ileocecal valve. The colonoscopy was performed without difficulty. The patient tolerated the procedure well. The quality of the bowel preparation was good. Findings: The digital rectal exam revealed a rectal mass. Many diverticula were found in the sigmoid colon. A polypoid partially obstructing medium-sized masswas found in the distal rectum. The mass was circumferential. The mass measured four cm inlength. Oozing was present. This was biopsied with a cold forceps for histology. Estimated blood loss was minimal. Procedure Code(s): --- Professional --- 86215, Colonoscopy, flexible; with biopsy, singleor multiple Diagnosis Code(s): --- Professional --- Z86.010, Personal history of colonic polyps K62.89, Other specified diseases of anus andrectum D49.0, Neoplasm of unspecified behavior ofdigestive system K56.690, Other partial intestinal obstruction K57.30, Diverticulosis of large intestine without perforation or abscess without bleeding CPT copyright 2020 [employer]. All rights reserved. The codes documented in this report are preliminary and upon director of volunteer services reviewmay be revised to meet current compliance requirements. Patrick Aguilar MD 02/22/2025 3:24:35 PM This report has been signed electronically.Patrick Aguilar MD Number of Addenda: 0 Note Initiated On: 02/22/2025 3:05 PM Scope In: Scope Out: Endoscopy Department at [facility] - [address] [place] [phone] IMPRESSION: - Rectal mass. - Diverticulosis in the sigmoid colon. - Rule out malignancy, partially obstructing tumorin the distal rectum. Biopsied. - The examination was suspicious for a malignant-appearing tumor. Recommendation: - Await pathology results. - Refer to a colo-rectal surgeon at appointment duke scheduled. - Perform CT scan (computed tomography) of theabdomen with contrast at appointment to be scheduled. Patrick Aguilar MD GI~PROCEDURE ORDERABLES Final Re sult * EGD Anesthesia - MAC; [facility] ENDOSCOPY (02/22/2025 3:20 PM EDT) Anatomical Region Laterality Modality Other 02/22/2025 2:50 PM EDT Impressions 02/22/2025 3:05 PM EDT - Medium-sized hiatal hernia. - Grade I esophageal varices. - No specimens collected. Recommendation: - Repeat upper endoscopy in 3 years for surveillance. Narrative 02/22/2025 3:05 PM EDT [facility] GI Patient Name: Gi Sanchez Procedure Date: 02/22/2025 2:50 PM Date of : 1950 Age: 74 Gender: Male Note Status: Finalized Attending MD: Patrick Aguilar MD, Procedure Date No Time: 02/22/2025 Procedure: Upper GI endoscopy Indications: Cirrhosis rule out esophageal varices Providers: Patrick Aguilar MD Referring MD: Patrick Aguilar MD Medicines: Propofol per Anesthesia Complications: No immediate complications. Estimated Blood Loss: Estimated blood loss: none. Procedure: Pre-Anesthesia Assessment: - ASA Grade Assessment: III - A patient with severe systemic disease. After obtaining informed consent, the endoscope was passed under direct vision. Throughout the procedure, the patient's blood pressure, pulse, and oxygen saturations were monitored continuously.The Endoscope was introduced through the mouth, and advanced to the second part of duodenum. The upper GI endoscopy was accomplished without difficulty. The patient tolerated the procedure well. Findings: A medium-sized hiatal hernia was present. Grade I varices were found in the lower third of the esophagus. Estimated blood loss: none. Procedure Code(s): --- Professional --- 51805, Esophagogastroduodenoscopy, flexible, transoral; diagnostic, including collection of specimen(s) by brushing or washing, when performed (separate procedure) Diagnosis Code(s): --- Professional --- K44.9, Diaphragmatic hernia without obstruction or gangrene K74.60, Unspecified cirrhosis of liver I85.10, Secondary esophageal varices without bleeding CPT copyright 2021 [employer]. All rights reserved. The codes documented in this report are preliminary and upon director of volunteer services review may be revised to meet current compliance requirements. Patrick Aguilar MD 02/22/2025 3:05:17 PM This report has been signed electronically.Patrick Aguilar MD Number of Addenda: 0 Note Initiated On: 02/22/2025 2:50 PM Scope In: Scope Out: Endoscopy Department at [facility] - [address] [place] [phone] Procedure Note Patrick Aguilar MD - 02/22/2025 [facility] GI Patient Name: Gi Sanchez Procedure Date: 02/22/2025 2:50 PM Date of : 1950 Age: 74 Gender: Male Note Status: Finalized Attending MD: Patrick Aguilar MD, Procedure Date No Time: 02/22/2025 Procedure: Upper GI endoscopy Indications: Cirrhosis rule out esophageal varices Providers: Patrick Aguilar MD Referring MD: Patrick Aguilar MD Medicines: Propofol per Anesthesia Complications: No immediate complications. Estimated Blood Loss: Estimated blood loss: none. Procedure: Pre-Anesthesia Assessment: - ASA Grade Assessment: III - A patient with severe systemic disease. After obtaining informed consent, the endoscope was passed under direct vision. Throughout theprocedure, the patient's blood pressure, pulse, and oxygen saturations were monitored continuously.TheEndoscope was introduced through the mouth, and advanced tothe second part of duodenum. The upper GI endoscopy was accomplished without difficulty. The patienttolerated the procedure well. Findings: A medium-sized hiatal hernia was present. Grade I varices were found in the lower third ofthe esophagus. Estimated blood loss: none. Procedure Code(s): --- Professional --- 88409, Esophagogastroduodenoscopy, flexible, transoral; diagnostic, including collection of specimen(s) by brushing or washing, when performed (separate procedure) Diagnosis Code(s): --- Professional --- K44.9, Diaphragmatic hernia without obstruction or gangrene K74.60, Unspecified cirrhosis of liver I85.10, Secondary esophageal varices withoutbleeding CPT copyright 2020 [employer]. All rights reserved. The codes documented in this report are preliminary and upon director of volunteer services reviewmay be revised to meet current compliance requirements. Patrick Aguilar MD 02/22/2025 3:05:17 PM This report has been signed electronically.Patrick Aguilar MD Number of Addenda: 0 Note Initiated On: 02/22/2025 2:50 PM Scope In: Scope Out: Endoscopy Department at [facility] - [address] [place] [phone] IMPRESSION: - Medium-sized hiatal hernia. - Grade I esophageal varices. - No specimens collected. Recommendation: - Repeat upper endoscopy in 3 years forsurveillance. us Patrick Aguilar MD GI~PROCEDURE ORDERABLES Final Re sult * Tissue exam (02/22/2025 3:16 PM EDT) Final Diagnosis Rectum, mass, biopsy: Benign fragments of colonic mucosa, not diagnostic of a mass lesion. No dysplasia or neoplasia identified; see comment. 02/24/2025 11:27 AM EDT [facility] Comment Biopsy contains small fragments of benign colonic mucosa with some erosion, inflammatory and prolapse type changes with focal superficial hyperplasia. Multiple levels are evaluated. These findings do not explain an obstructing mass lesion; lesion may be deeper and thus not sampled in a mucosal biopsy. 02/24/2025 11:27 AM EDT [facility] Gross Description A. Large Intestine, Rectum, mass biopsies: Labeled LI rectum, rectum . Received in formalin are two irregular friable pink-red mucosal tissue fragments, each measuring approximately 0.2 cm in greatest dimension, which are wrapped in paper and submitted in toto in one cassette, two pieces, multiple levels on one slide. MARICRUZ 02/24/2025 11:27 AM EDT [facility] Disclaimer Unless otherwise specified, all tissue is 10% NB formalin fixed and paraffin embedded. 02/24/2025 11:27 AM EDT [facility] Tissue Rectum structure / Unknown 02/22/2025 3:16 PM EDT 02/22/2025 3:52 PM EDT Patrick Aguilar MD LAB PATHOLOGY ORDERABLES Final R esult [facility] [address] [place] [address], * CT Abdomen Pelvis w Contrast (02/02/2025 [...] Signed Date: 02/02/2025 16:26 ET Workstation ID: [id number] Transcribed By: Self Edit Transcribed Date: 02/02/2025 [...] Signed Date: 02/02/2025 16:26 ET Workstation ID: [id number] Transcribed By: Self Edit Transcribed Date: 02/02/2025 16:23 ET Rosina Diaz NP IM CT PROCEDURES Final Result * (ABNORMAL) Basic metabolic panel (02/02/2025 8:39 AM EDT) Sodium 136 133 - 145 mmol/L LAB CHEMISTRY METHOD 02/02/2025 10:26 AM [facility] Potassium 4.7 3.5 - 5.5 mmol/L LAB CHEMISTRY METHOD 02/02/2025 10:26 AM [facility] Chloride 104 96 - 110 mmol/L LAB CHEMISTRY METHOD 02/02/2025 10:26 AM [facility] CO2 28 21 - 32 mmol/L LAB CHEMISTRY METHOD 02/02/2025 10:26 AM [facility] Anion Gap 4 3 - 11 LAB CHEMISTRY METHOD 02/02/2025 10:26 AM [facility] Glucose 130(H) 70 - 100 mg/dL LAB CHEMISTRY METHOD 02/02/2025 10:26 AM EDT [facility] BUN 18 5 - 25 mg/dL LAB CHEMISTRY METHOD 02/02/2025 10:26 AM [facility] Creatinine 1.10 0.70 - 1.30 mg/dL LAB CHEMISTRY METHOD 02/02/2025 10:26 AM EDT [facility] eGFR 70 >=60 mL/min/1. 73m2 LAB CHEMISTRY METHOD 02/02/2025 10:26 AM EDT [facility] Comment:Calculation based on the Chronic Kidney Disease Epidemiology Collaboration (CKD-EPI) equation refit without adjustment for race. BUN/Creatinine Ratio 16.4 LAB CHEMISTRY METHOD 02/02/2025 10:26 AM [facility] Calcium 9.8 8.5 - 10.5 mg/dL LAB CHEMISTRY METHOD 02/02/2025 10:26 AM T [facility] Blood Venous blood specimen / Unknown Venipuncture / Unknown 02/02/2025 8:39 AM EDT 02/02/2025 8:39 AM EDT Rosina Diaz [employer] LAB BLOOD ORDERABLES Final Resu lt [facility] [address] [place] [address], * Hepatitis C Screening (11/16/2014) Pathologist [facility] Hepatitis C Screening abstracted Historical Provider HEALTH MAINTENANCE Final Result from Last 3 Months or Most Recently Relevant to Health Maintenance Insurance [employer] MEDICARE ADVANTAGE [place]ICAID - [place] Care Teams Triage Licensed Practical Nurse Relationship Specialty Start Date End Date Sukhwinder Hester MD [address] [place] [address] Dr Josh MA PCP - General Family Medicine 01/10/25
== END 2025-04-07 10:25 | disposition home or self-care (01) ==
LOC: HO.HMCFM 09:37
PROVIDERS: PCP Family Medicine; Visit Provider Family Medicine
DX: E78.5 Hyperlipidemia, unspecified (principal); R03.0 Elevated blood-pressure reading, without diagnosis of hypertension; I35.0 Nonrheumatic aortic (valve) stenosis; R07.2 Precordial pain; I77.810 Thoracic aortic ectasia; K59.00 Constipation, unspecified